=== PATIENT | male | born 1960 | race Caucasian/White ===

== ENCOUNTER 2017-02-10 13:15 | Inpatient (IN) | payer MEDICARE ==
[~2017-02-10] VITALS: Ht 188 cm; Wt 99.4 kg
[2017-02-10] VITALS (9 sets, daily range): BP systolic 85–169; BP diastolic 48–88; PULSE 59–90; RESP 12–20; O2SAT 94–100
[~2017-02-10 13:15] MED LIST: Ondansetron 2 mg/mL 2 mL Inj ONE; Propofol 10,000 mCg/mL 20 mL Inj ONE; fentaNYL-PF 50 mCg/mL 2 mL Inj ONE
[2017-02-10] MEDS ORDERED: 0.9% Sodium Chloride 1,000 ML IV ONE (14:35)
[2017-02-10] MEDS ORDERED: Ondansetron 2 mg/mL 2 mL Inj IVPUSH ONE (14:35)
--- NOTE | 2017-02-10 15:06 | ED.REPORT ---
HPI-Extremity Problem Lower Date of Service Feb 10, 2017 ED Provider: Keith Webb PA-C Edwin is a 56-year-old male with a history of diabetes presents emergency department with a necrotic fifth toe. Patient was seen at urgent care yesterday and advised to be seen in the emergency department, he was unable to make it. Patient was contacted by Dr. Long this morning and asked to come in. Patient reports he injured the toe 8 days ago when he dropped a door on it. Today it is black, painful. Denies fever, shaking chills, abdominal pain, vomiting or other symptoms. He reports he is noncompliant with his insulin. Nursing Notes Stated Complaint: LEFT FOOT INJURY Chief Complaint: Extremity Trauma Nursing Notes Reviewed: Yes Allergies: Coded Allergies: No Known Allergies (Unverified , 02/10/17) No Active Prescriptions or Reported Meds General Time Seen by MD: 14:29 Chief Complaint Toe injury left 5 Past Medical History Past Medical History Diabetes Review of Systems Review of Systems Note: General: Denies fever, chills, malaise. HEENT: Denies congestion, headache, sore throat. Respiratory: Denies dyspnea, cough, shortness of breath, wheezing. Cardiovascular: Denies chest pain, palpitations. Gastrointestinal: Denies vomiting, diarrhea, abdominal pain. Genitourinary: Denies frequency, urgency, dysuria, hematuria. Otherwise as noted in HPI. Physical Exam General: Well appearing, well developed, well nourished, no acute distress. Left foot: Diffuse redness and swelling over distal lateral forefoot. There is an open sore on the dorsal surface of the fifth MTP joint. The fifth digit is black and swollen. Brisk capillary refill in the remaining phalanges. PT and DP pulses are not appreciated, however the foot is warm. Left knee: Normal to inspection, nontender, full range of motion. Head: Atraumatic, normocephalic. Eyes: No scleral icterus or injection. No discharge. Vision grossly intact. ENT: Voice clear, hearing grossly intact. Respiratory: Regular rate and rhythm. Breath sounds present, clear to auscultation and equal bilaterally. No respiratory distress. No increased work of breathing, speaks in complete sentences. Cardiovascular: Regular rate and rhythm, without murmur, gallop or rub. No pedal edema. Gastrointestinal: Abdomen flat and non-tender without guarding or rebound. Bowel sounds normoactive. Skin: Warm and dry. Neurological: Grossly nonfocal. Psychological: Alert and oriented. Speech appropriate, linear and logical. Behavior appropriate. Initial Vital Signs Vital Signs (First) Date Time Temp Pulse Resp B/P Pulse Ox O2 Delivery O2 Flow Rate FiO2 02/10/17 13:21 37.0 59 18 169/63 98 Room Air Elevated blood pressure Interpretation & Diagnostics Lab Results Interpretation Result Diagram: 02/10/17 1541 02/10/17 1541 Re-Eval/Medical Decision Med Decision/Clinical Course 56-year-old male with a history of diabetes presenting for necrosis in his left fifth toe. Seen by Dr. Long prior to my examination, admission is already arranged. Patient complains of no symptoms other than pain in his toe as well as redness and swelling in the forefoot. Physical examination reveals a necrotic right fifth toe surrounding redness, swelling and tenderness. Appears neurovascularly intact. Basic labs are ordered and hospitalist is consulted who accepts admission. Patient is transferred to the floor in stable condition. Consultation : Referral / Consult Name: Nikolay Middleton MD Call Returned at: 15:02 Senior Integration Architect: Accepts admit Discharge & Departure Impression: Primary Impression: Necrosis Disposition: ADMITTED TO HOSPITAL Referrals: NOPCP (PCP) EDSupervising Provider for APC: Ricci Vuong Seth PA-C Feb 10, 2017 15:06
[2017-02-10] MEDS ORDERED: HYDROmorphone 0.5 mg/0.5 mL iSecure Syringe IVPUSH PRN (15:35)
--- NOTE | 2017-02-10 15:43 | PCM.CHPPOD ---
Subjective Date of service Feb 10, 2017 History of Present Illness This 56-year-old male sense to the ED after I called him today to check on the status of his foot having been notified by urgent care in [place] yesterday that he had a gangrenous fifth digit. Patient failed to present to the ED yesterday stating that he did not have care for his disabled . Patient states that he dropped a door on the toe approximately 10 days ago, did sustain an open wound, did not seek medical care and has noted progressive bluish discoloration of the toe and redness and swelling on the dorsum of the foot as well as increased pain since. He states he does not feel well, possibly feverish but denies chills. Patient further states that he is diabetic whether he disengaged from the healthcare system approximately 2 years ago and has not been on any medications or had any evaluations in that interim. Patient is a long-standing smoker. He denies prior foot infections nonhealing wounds or ulcerations of his feet. Reason for Consultation Gangrenous fifth toe left foot and cellulitis of the distal lateral left forefoot. Allergy Allergies: Coded Allergies: No Known Allergies (Unverified , 02/10/17) Past Medical History Surgeries: No Medical History: Surgical History: Additional information Please see admission H&P. Social History Hx Alcohol Use: No Hx Substance Use: No Podiatry Consult Exam Vital Signs Vital Sign - Last Date Time Temp Pulse Resp B/P Pulse Ox O2 Delivery O2 Flow Rate FiO2 02/10/17 13:21 37.0 59 18 169/63 98 Room Air Lab Pending at the time of this note Diagnostics X-ray exam 3 views left foot of 02/09/2017 show mild diffuse osteopenia, subtle cortical defect and lytic lesion lateral proximal phalangeal head with no gross fractures or severe osteolysis noted Exam General: Mild Distress Additional Information: This 56-year-old male presented to the ED with a clean but disheveled bandage on the left foot and in postop shoe. Patient is somewhat wan in appearance and appears what ill but is not in acute distress. Does complain of left foot pain when the foot is touched or bumped. Lower extremity exam Vascular posterior tibial pulses are trace bilaterally, dorsalis pedis pulses are nonpalpable, capillary refill at the digits is 3-4 seconds. The right foot is slightly warm the left foot is moderately warm. There is evidence of digital hair growth and no gross elevational pallor or dependent rubor. Neurologic gross sensory exam shows patient to be partially insensate to the plantar surface of his feet but does have marked pain sensation in the region of the fifth toe left foot. Musculoskeletal ankle subtalar midtarsal ranges of motion appear to be within normal limits although left foot is not put through a full range and assessment due to pain. There are no gross digital deformities. The fifth digit is deeply cyanotic and dusky, slightly cool and there is seropurulent drainage and mild malodor emanating from the toe. Left forefoot is edematous circumferentially. There does not appear to be any fluctuance or focal abscess to palpation. Remainder of the pedal skin is intact. Dermatologic skin shows normal tone and turgor however the fifth toe left foot is gangrenous, weeping malodorous serous drainage and there is intense erythema of the distal lateral forefoot extending to the midfoot. Assessment & Plan Assessment Wet gangrene of the fifth digit left foot, cellulitis left forefoot, probable PAD and uncontrolled diabetes. Problems: Plan Findings reviewed with patient and he will be admitted to the hospitalist service through the ED for parenteral antibiotics and medical management. I have recommended amputation of the gangrenous fifth toe, which will be performed this evening if patient is cleared and medically stable. I reviewed details of the procedure, the fact that closure will not likely be possible immediately and that further surgery may be indicated. Patient is made aware that this is a potentially limb threatening situation but that if tissue loss is limited to the fifth toe he should do well functionally. Patient does express understanding and is willing to proceed. We also discussed at some length the necessity to reengage with the healthcare system and resume treatment of the diabetes, again patient expressed understanding and seem to have good insight as to the advisability of this. I also recommended smoking cessation. Certainly no warrantees were made or implied regarding postoperative results. I appreciate the assistance of the ED staff and hospitalists service. Hoang Long DPM Feb 10, 2017 15:43
[2017-02-10 15:48] LABS: BASOPHILS % (AUTO) 0.3 % (0-3); EOSINOPHILS % (AUTO) 0.5 % (0-5); MONOCYTES % (AUTO) 6.8 % (4-12); Mean Corpuscular Hemoglobin 27.2 pg (27.0-35.0); Mean Corpuscular Volume 79.3 fL (81-100); NEUTROPHILS % (AUTO) 69.2 % (40-74); Platelet Count 296 bil/L (150-400)
[2017-02-10] MEDS ORDERED: Alum-Mag Hydrox-Simeth 30 mL Suspension PO PRN ×2 (15:50→16:20)
[2017-02-10] MEDS ORDERED: Ondansetron 2 mg/mL 2 mL Inj IVPUSH PRN ×2 (15:50→19:00)
[2017-02-10] MEDS ORDERED: Polyethylene Glycol (PEG) 17 Gm Powder PO PRN (16:20)
[2017-02-10] MEDS ORDERED: Glucose 40% Oral Gel 15 Gm Tube PO PRN (16:25)
[2017-02-10] MEDS ORDERED: Albuterol-Ipratropium 3 mL Inhalation Solution NEB PRN (16:30)
[2017-02-10] MEDS: 0.9% Sodium Chloride 1,000 ML IV SCH (16:35)
[2017-02-10] MEDS ORDERED: Dextrose 10% 250 ML IV PRN (16:35)
[2017-02-10] MEDS ORDERED: Vancomycin Inj 2,000 MG in 0.9% Sodium Chloride 500 ML IV ONE (16:40)
[2017-02-10] MEDS ORDERED: Piperacillin-Tazo 3.375 Gm Inj 3.375 GM in Dextrose 5% Minibag Plus 50 ML IV ONE (16:40)
--- NOTE | 2017-02-10 16:50 | PCM.HPMED ---
Subjective Date of Service Feb 10, 2017 Primary Provider: Admitting Physician: Nikolay Middleton MD Primary Care Physician: Giuliana Attending Physician: Nikolay Middleton MD Admit Status: From the Emergency Department, Admit to Red Team Chief Complaint: Left 5th toe injury History of Present Illness: 56-year-old pleasant male history of diabetes type II uncontrolled not currently on medications, diabetic neuropathy, smoker presenting, recent injury of fifth left toe 10 days prior presenting to the ED due to digit turning blue and inc pain. Patient had been seen at [facility] who had instructed patient to go to the ED and also contacted podiatry Dr. Hoang Long informing him that he had a gangrenous fifth digit. Dr. Long contacted patient today after learning that he did not go to the emergency department. Patient initially sustained the injury after door fell on his left foot 10 days ago. He said that he did have bleeding at the site. Both 3 days ago he noticed that he had more redness in the skin surrounding the injury. He says that his toe has been progressively changing color becoming more bluish. Patient says that pain is also increased over the same timeframe. Patient says that he has not seen a doctor in 2 years and has not been taking any medications for his diabetes and that time. He is a daily smoker. Denies any fever or chills. Denies any nausea vomiting diarrhea. Review of Systems: 12 point review of symptoms negative except for that in history of present illness Allergies Coded Allergies: No Known Allergies (Unverified , 02/10/17) Home Medications Patient is not currently taking any home medications Has been on insulin in the past. PMH diabetes type II uncontrolled not currently on medications, diabetic neuropathy, smoker Surgical History Denies any past surgical history. Family History No known cardiac family history Social History Hx Alcohol Use: No Hx Substance Use: No Hx Tobacco Use: Yes Smoking Status: Current Every Day Smoker Exam Vital Signs Vital Sign - Last Date Time Temp Pulse Resp B/P Pulse Ox O2 Delivery O2 Flow Rate FiO2 02/10/17 16:16 36.9 90 20 162/88 96 Room Air Exam Gen: NAD, AOx4, HEENT: NCAT, PERRLA, EOMI, MMM, sclera anicteric. Neck: Soft, supple, no thyromegaly/JVD/LAD. Resp: CTAB, no R/R/W. CV: S1 S2, RRR, No M/R/G Abd: Soft, (+) BS, NT/ND, no guarding/rebound/organomegaly. Ext: +weak bilateral PP, Left 5th digit- necrotic appearing, bluish in color. surrounding erythema dorsum of left foot. Skin: warm/dry/intact Neuro/Psych: Cooperative, appr mood/affect. CN II-XII grossly intact. No focal deficits. Left 5th digit- dec sensation, can feel pressure. Lab and Diagnostics Result Diagram: 02/10/17 1541 02/10/17 1541 Microbiology Laboratory Tests Test 02/10/17 15:41 White Blood Count 13.0th/mm3 (3.8-10.1) Red Blood Count 5.41mil/mm3 (4.40-5.80) Hemoglobin 14.7g/dL (13.8-17.2) Hematocrit 42.9% (41.0-50.0) Mean Corpuscular Volume 79.3fL (81-100) Mean Corpuscular Hemoglobin 27.2pg (27.0-35.0) Mean Corpuscular Hemoglobin Concent 34.3% (32.0-37.0) Red Cell Distribution Width 14.1% (12.3-15.4) Platelet Count 296bil/L (150-400) Neutrophils (%) (Auto) 69.2% (40-74) Lymphocytes (%) (Auto) 23.0% (14-46) Monocytes (%) (Auto) 6.8% (4-12) Eosinophils (%) (Auto) 0.5% (0-5) Basophils (%) (Auto) 0.3% (0-3) Sodium Level 137mEq/L (134-144) Potassium Level 3.7mEq/L (3.5-5.2) Chloride Level 100mEq/L (97-108) Carbon Dioxide Level 22mmol/L (18-29) Blood Urea Nitrogen 22mg/dL (6-24) Creatinine 0.80mg/dL (0.76-1.27) Estimat Glomerular Filtration Rate 107mL/min (>59) Glucose Level 212mg/dL (60-99) Lactic Acid Level 1.0mmol/L (0.4-2.0) Calcium Level 9.3mg/dL (8.5-10.1) Total Bilirubin 0.4mg/dL (0.0-1.2) Aspartate Amino Transf (AST/SGOT) 10U/L (0-50) Alanine Aminotransferase (ALT/SGPT) 9U/L (0-44) Alkaline Phosphatase 111U/L (25-150) Total Protein 7.2g/dL (6.4-8.4) Albumin 3.6g/dL (3.4-5.0) Lipase 14U/L (13-60) X-Rays, CTs and MRIs X-ray exam 3 views left foot of 02/09/2017 show mild diffuse osteopenia, subtle cortical defect and lytic lesion lateral proximal phalangeal head with no gross fractures or severe osteolysis noted Assessment & Plan 56-year-old pleasant male history of diabetes type II uncontrolled not currently on medications, diabetic neuropathy, smoker presenting, recent injury of fifth left toe 10 days prior sent to the ED by Podiatry for gangrenous fifth toe left foot and cellulitis of the distal lateral left forefoot. Gangrenous fifth toe left foot and cellulitis of the distal lateral left forefoot- poa, active. WBC- 13, Does not meet criteria for Sepsis. -Likely due to uncontrolled diabetes and delay in seeking medical assistance. Pt have have peripheral vascular disease and weak peripheral pulses. -X-ray exam 3 views left foot of 02/09/2017 show mild diffuse osteopenia, subtle cortical defect and lytic lesion lateral proximal phalangeal head with no gross fractures or severe osteolysis noted -Podiatry Dr. Og Long, has seen patient in ED and will likely take to OR tonight for amputation of the gangrenous fifth toe. -Will start IV abx- Vancomycin and Zosyn. Blood Cultures sent. -c/w IVF, Diluadid prn for pain. - Keep NPO for pending surgery. - Pre-OP EKG, CXR. - Pt is low cardiac risk for surgery. Diabetes type II uncontrolled- chronic, active- Pt not currently taking meds for > 2 yrs. Pt was on insulin in past. - Check HBA1C. - Start SSI, will calculate 24 hr and determine insulin needs. Smoking Abuse- chronic, active- Cessation advised. Nicotine patch. CXR- ordered. Code- Full DVT ppx- SCD. Consider heparin post-op 24 hrs. Acetaminophen for mild pain when necessary. Bowel regimen Senna and MiraLAX scheduled and PRN. Zofran when necessary for nausea and vomiting. Status- Patient is admitted under inpatient status expected length of stay greater than 2 midnights due to severity of presenting symptoms, risk of adverse events, and complexity of treatment plan. Pain Evaluation: Adequate Pain Control GI Prophylaxis: Not indicated VTE Mechanical Devices: Intermittant Pneumatic CD Resuscitation Status: CPR: Attempt Resuscitation Time spent >45 minutes Nikolay Middleton MD Feb 10, 2017 16:50
--- NOTE | 2017-02-10 17:06 | DRSVH ---
PROCEDURE: X-RAY CHEST ONE VIEW, PORTABLE ([id number]) INDICATIONS: Smoker, preop TECHNIQUE: One view of the chest was acquired. COMPARISON: None. FINDINGS: Surgical changes and devices: None. Lungs and pleura: No pleural effusions or pneumothorax. Lungs are clear. Mediastinum: Mediastinal contours appear normal. Heart size is normal. Bones and chest wall: No suspicious bony lesions. Overlying soft tissues appear unremarkable. IMPRESSION: No acute pulmonary process. Dictated by: Aparna Peng M.D. on 02/10/2017 at 17:04 Approved by: Aparna Peng M.D. on 02/10/2017 at 17:04
[2017-02-10] MEDS: Insulin LISPRO 300 Unit/3 mL Inj SUBQ SCH ×2 (17:30→21:41)
[2017-02-10] MEDS: HYDROmorphone 1 mg/mL Inj IVPUSH PRN (18:20)
--- NOTE | 2017-02-10 18:35 | PCM.PHAPRO ---
Progress Date of Service: Feb 10, 2017 Left 5th toe injury Vancomycin Management per Pharmacy: Indication: Osteomyelitis of toe Goal Vanco Trough: 15-20 mg/dL Age: 56 yo male, significant for history of diabetes type II - uncontrolled Labs: WBC: 13 SrCr: 0.8 mg/dL Lactic Acid: 1.0 Procalcitonin: 0.04 Vitals: All stable, no fevers Nephrotoxic Risk Factors: Uncontrolled diabetes, Zosyn IV Micro: Pending Recommendation: Load: Vancomycin 2000 mg IV x 1 given in ED (~20 mg/kg) Maintenance: Vancomycin 1500 mg IV Q12h (~15 mg/kg) Vanco Trough: Draw prior to 4th maintenance dose on 02/12 @ 1930 Pharmacy to continue to monitor and adjust dose as needed. Thank You, Janna Chaudhary, Pharm D. Janna Chaudhary Feb 10, 2017 18:35
[2017-02-10] MEDS ORDERED: Lactated Ringer's 500 ML IV PRN (18:57)
[2017-02-10] MEDS ORDERED: Lactated Ringer's 1,000 ML IV SCH (18:57)
--- NOTE | 2017-02-10 18:58 | PCM.HPANE ---
Patient Data Surgeon Admitting Provider:Nikolay Middleton MD Attending Provider:Nikolay Middleton MD Primary Care Physician:Giuliana Other Provider: Reason for Visit 5TH Toe Necrosis Ht/WT & BMI Height (Feet): 6 Height (Inches): 2.00 Weight (Kilograms): 98.700 Body Mass Index 27.93 Allergies Coded Allergies: No Known Allergies (Unverified , 02/10/17) Past Anesthesia History Anesthesia History: Denies:: Abnormal Airway, Anesthesia Reactions, Difficult Intubation, Fam Anesthesia Reaction, Fam Malignant Hypertherm, Malignant Hyperthermia Diabetes History Hx Diabetes?: Yes Medications No Active Prescriptions or Reported Meds History History of ENT Problems?: No HEENT History: Denies:: Abnormal Airway Cataracts Difficult Intubation Dysphagia Glaucoma Hearing Problem Sinus Problem TMJ Denture Type: None Partial- Upper Teeth Condition: Within Normal Limits Hx of Heart Problems?: No Cardiovascular History: Denies:: Cardiac Surgery Chest Pain Congestive Heart Failure Edema Heart Murmur Hypertension Irregular Heartbeat Pacemaker Thrombophlebitis Hx of Respiratory Problem?: No Respiratory History: Denies:: Asthma COPD Chest Surgery Dyspnea Emphysema Hemoptysis Pneumonia Tuberculosis Hx Neurologic Problems?: No Hx of GI Problems?: No Hx of Problems?: No Male Hx: Denies:: Prostate Problems Scrotal Mass Testicular Surgery Hx Musculoskeletal Problems?: No Hx of Psycho/Social Problems?: No Hx Surgeries?: No Hx Any Other Health Problems?: Yes Other History: Denies:: Cancer Hospitalization Thyroid Disease History Blood Transfusions: Positive for:: Accept Blood Products? Denies:: Blood Transfusions Hx Diabetes: Yes Hx Alcohol Use: NoHx Substance Use: No Smoking Status: Current Every Day Smoker Have You Smoked inLast 12 mo: Yes (1PPP) Stop/Bang Treated for Sleep Apnea?: No Do You Have a CPAP Machine?: No S-Snoring: Do You Snore Loudly: Yes T-Tired: feel tired, fatigued: No O-Obsered: Observed not breath: No P-Blood Pressure: treated: No B- Body Mass Index > 35 kg/m2: No A- Age over 50: Yes N- Neck Large Circumference: No G- Gender Male: Yes SHEYLA Total Score: 2 Risk Assessment Category Category 1A: Patient has history of documented sleep apnea, and HAS NOT received any narcotic, sedative or anesthesia administration during this stay. Category 1B: Patient has history of documented sleep apnea, and HAS received any narcotic , sedative or anesthesia administration during this stay Category 2: Patient has SUSPECTED Obstructive Sleep Apnea, and HAS received any narcotic , sedative or anesthesia administration during this stay. Category 3: Patient has SUSPECTED Obstructive Sleep Apnea and HAS NOT received narcotic, sedative or anesthesia administration during this stay. Category 4: Outpatient in Procedural Areas with known sleep apnea or who screen positive for High Risk via the STOP/BANG questionnaire. Exam Exam Vital Signs Vital Signs Date Time Temp Pulse Resp B/P Pulse Ox O2 Delivery O2 Flow Rate FiO2 02/10/17 16:16 36.9 90 20 162/88 96 Room Air 02/10/17 15:55 36.8 88 20 155/86 98 Room Air 02/10/17 13:21 37.0 59 18 169/63 98 Room Air General Appearance: Alert, Oriented X3, Cooperative, No Acute Distress HEENT/AIRWAY: MP 2 Lungs: Clear to Auscultation Heart: Exam Unremarkable Meds/Labs/Diagnostics Admission Meds Current Medications Sodium Chloride 1,000 ml @ 0 mls/hr Q0M ONCE IV Last administered on 02/10/17 15:38; Start 02/10/17 at 14:35; Stop 02/10/17 at 16:31; Status DC Piperacillin Sod/ Tazobactam Sod/ Dextrose/Water (Zosyn 3.375 Gm Inj/D5W Minibag Plus) 50 ml @ 100 mls/hr ONCE ONCE IV Last administered on 02/10/17 17:30; Start 02/10/17 at 16:40; Stop 02/10/17 at 17:09; Status DC Labs Test 02/10/17 15:41 White Blood Count 13.0th/mm3 (3.8-10.1) Red Blood Count 5.41mil/mm3 (4.40-5.80) Hemoglobin 14.7g/dL (13.8-17.2) Hematocrit 42.9% (41.0-50.0) Mean Corpuscular Volume 79.3fL (81-100) Mean Corpuscular Hemoglobin 27.2pg (27.0-35.0) Mean Corpuscular Hemoglobin Concent 34.3% (32.0-37.0) Red Cell Distribution Width 14.1% (12.3-15.4) Platelet Count 296bil/L (150-400) Neutrophils (%) (Auto) 69.2% (40-74) Lymphocytes (%) (Auto) 23.0% (14-46) Monocytes (%) (Auto) 6.8% (4-12) Eosinophils (%) (Auto) 0.5% (0-5) Basophils (%) (Auto) 0.3% (0-3) Erythrocyte Sedimentation Rate 17mm/hr (0-30) Sodium Level 137mEq/L (134-144) Potassium Level 3.7mEq/L (3.5-5.2) Chloride Level 100mEq/L (97-108) Carbon Dioxide Level 22mmol/L (18-29) Blood Urea Nitrogen 22mg/dL (6-24) Creatinine 0.80mg/dL (0.76-1.27) Estimat Glomerular Filtration Rate 107mL/min (>59) Glucose Level 212mg/dL (60-99) Lactic Acid Level 1.0mmol/L (0.4-2.0) Calcium Level 9.3mg/dL (8.5-10.1) Total Bilirubin 0.4mg/dL (0.0-1.2) Aspartate Amino Transf (AST/SGOT) 10U/L (0-50) Alanine Aminotransferase (ALT/SGPT) 9U/L (0-44) Alkaline Phosphatase 111U/L (25-150) Total Protein 7.2g/dL (6.4-8.4) Albumin 3.6g/dL (3.4-5.0) Lipase 14U/L (13-60) Plan Impression Patient chart reviewed, patient interviewed and anesthestic plan with risks, benefits, and alternatives discussed, and informed consent obtained. ASA Physical Status: ASA2 Mod Systemic Disease Anesthetic Plan: GA Bene/Risks/Altern/Consents: Yes HP Complete Prior to Induction: Yes Wolfgang Medina MD Feb 10, 2017 17:37
[2017-02-10] MEDS ORDERED: HYDROmorphone 1 mg/mL Inj IVPUSH PRN (19:00)
[2017-02-10] MEDS ORDERED: fentaNYL-PF 50 mCg/mL 2 mL Inj IVPUSH PRN (19:00)
[2017-02-10] MEDS ORDERED: Phenylephrine 10,000 mCg/mL Inj IVPUSH PRN (19:00)
[2017-02-10] MEDS ORDERED: MetoCLOpramide 5 mg/mL 2 mL Inj IVPUSH PRN (19:00)
[2017-02-10] MEDS ORDERED: EPHEDrine Sulfate 50 mg/mL Inj IVPUSH PRN (19:00)
[2017-02-10] MEDS ORDERED: Dexamethasone 4 mg/mL Inj IVPUSH PRN (19:00)
[2017-02-10] MEDS ORDERED: Bupivacaine-MPF 0.5% 30 mL Inj INFILTRATE ONE (19:09)
[2017-02-10] MEDS ORDERED: Gentamicin 40 mg/mL 2 mL Inj IRRIGATION ONE (19:33)
--- NOTE | 2017-02-10 20:07 | PCM.PODPO ---
Podiatry Operative Report Date of Service: Feb 10, 2017 Date of Service Feb 10, 2017 Pre Operative Diagnosis Gangrene fifth digit left foot, cellulitis left foot Post Operative Diagnosis Same, additional full-thickness perforating abscess sub-first metatarsal head left foot Procedure Amputation fifth digit left foot, debridement of ulceration sub-first met head left foot Surgeon Surgeon: Hoang Long DPM Indication for Procedure Same Findings Minimal intraoperative bleeding, same as above Details of Procedure Patient was brought to the operating room and placed on the table in the supine position. Surgical timeout was observed and upon initiation of general anesthesia a well-padded pneumatic ankle tourniquet was applied but not utilized intraoperatively. The foot was prepped and draped in the usual aseptic manner. Attention was directed to the fifth digit which was entirely necrotic and medial and lateral converging semi-elliptical incisions were made at the base of the toe at the interface between chronic and viable-appearing tissue. This incision was sharply deepened and the long flexor and extensor tendons were transected. The collateral ligaments were divided, the fifth digit was disarticulated at the metatarsophalangeal joint and removed from the surgical field. Next the head of the fifth metatarsal was remodeled so as to remove avascular hyalin cartilage and allow for reducing its size to improve closure and reduce bony prominences on the surrounding soft tissue. This was performed with a bone rongeur forcep. The extensor tendon was retracted and transected. Senia-incisional necrotic tissue was carefully excised and all remaining tissue appeared viable although there was minimal intraoperative bleeding. Attention was then directed to the thick callus sub-first metatarsal head which was tangentially debrided with a 15 blade. The lesion measured 2 x 2 cm x 3-4 mm deep and exhibited a 4 x 4 millimeter central ostium which appear to probe nearly to the sesamoid complex. Devitalized fibrinous tissue was debrided. Both sites were copiously irrigated with antibiotic solution. The amputation site was partially closed with 3-0 Prolene. The wound were packed with an antibiotic solution soaked 2 x 2 sponge and noncompressive fluffed gauze bandage applied. The patient was extubated uneventfully and left the operating suite in apparently satisfactory condition. The digit was sent to pathology for gross and microscopic exam, soft tissue was sent for aerobic culture and sensitivity. There were no complications. Grafts, Implants: None Complications There were no periprocedural complications identified. Condition Stable Anesthetic Administered: GA Drains: None Catheters: None Output, Estimated Blood Loss: 5 Blood Admin during surgery: No Surgical Cast or Splint: Other Surgical Specimen Removed: Yes Specimen sent to Pathology: Yes Post Operative Plan Return to floor for continued parenteral antibiotics and vascular evaluation. Hoang Long DPM Feb 10, 2017 20:07
--- NOTE | 2017-02-10 20:17 | DRSVH ---
PROCEDURE: X-RAY LEFT FOOT COMPLETE, MINIMUM THREE VIEWS ([id number]) INDICATIONS: immediate post-op TECHNIQUE: 3 views of the foot were acquired. COMPARISON: YANET Mckenna, XR FOOT 3VW LT, 02/09/2017, 13:50. FINDINGS: Bones: There has been interval resection of the fifth digit distal to the metatarsal. Expected postop erative changes are present. Soft tissues: No tibiotalar joint effusion. Achilles tendon appears normal. IMPRESSION: Postoperative resection of fifth digit distal to the metatarsal. Dictated by: Aparna Peng M.D. on 02/10/2017 at 20:14 Approved by: Aparna Peng M.D. on 02/10/2017 at 20:15
--- NOTE | 2017-02-10 20:51 | PCM.ANEP1 ---
Post Anesthesia PACU Phase 1 Assessment Vital Signs Vital Signs Date Time Temp Pulse Resp B/P Pulse Ox O2 Delivery O2 Flow Rate FiO2 02/10/17 20:38 37.1 75 15 150/70 94 Room Air 02/10/17 20:20 36.7 67 12 136/68 95 Room Air 02/10/17 20:16 68 13 134/64 95 Room Air 02/10/17 20:08 67 15 122/60 100 Simple Mask 6 02/10/17 20:02 67 13 96/59 100 Simple Mask 6 02/10/17 19:49 36.1 63 12 85/48 95 LMA 02/10/17 16:16 36.9 90 20 162/88 96 Room Air 02/10/17 15:55 36.8 88 20 155/86 98 Room Air 02/10/17 13:21 37.0 59 18 169/63 98 Room Air Anesthetic Administered: GA Level of Alertness: Sleeping, hard to arouse Pain: No Pain Scale Score: 7 Nausea or Vomiting: No CV Function & Hydration Stable: Yes Airway Device: Oxygen Delivery: Room Air Lungs: Clear to Auscultation PACU Phase 2 Assessment Complications: No Patient Instructions Provided: N/A Wolfgang Medina MD Feb 10, 2017 20:51
[2017-02-10] MEDS: Piperacillin-Tazo 3.375 Gm Inj 3.375 GM in Dextrose 5% Minibag Plus 50 ML IV SCH (21:44)
[2017-02-10] MEDS: HYDROcodone-APAP 5-325 mg Tablet PO PRN (22:14)
[2017-02-11] MEDS: HYDROmorphone 1 mg/mL Inj IVPUSH PRN ×3 (00:06→10:54)
[2017-02-11 00:51] VITALS: BP 146/80; PULSE 71; RESP 17; O2SAT 98
[2017-02-11] MEDS: 0.9% Sodium Chloride 1,000 ML IV SCH ×3 (02:35→22:35)
[2017-02-11] MEDS: Piperacillin-Tazo 3.375 Gm Inj 3.375 GM in Dextrose 5% Minibag Plus 50 ML IV SCH ×3 (05:08→22:49)
[2017-02-11 05:30] VITALS: BP 156/75; PULSE 63; RESP 19; O2SAT 95
[2017-02-11 06:11] LABS: BASOPHILS % (AUTO) 0.4 % (0-3); EOSINOPHILS % (AUTO) 1.5 % (0-5); MONOCYTES % (AUTO) 8.2 % (4-12); Mean Corpuscular Hemoglobin 26.8 pg (27.0-35.0); Mean Corpuscular Volume 81.2 fL (81-100); Platelet Count 269 bil/L (150-400)
[2017-02-11] MEDS: Vancomycin Dose per Pharmacist XX SCH ×2 (07:55→08:04)
[2017-02-11] MEDS: Insulin LISPRO 300 Unit/3 mL Inj SUBQ SCH ×4 (08:02→23:00)
[2017-02-11] MEDS: HYDROcodone-APAP 5-325 mg Tablet PO PRN ×3 (08:10→17:42)
[2017-02-11] MEDS: Vancomycin Inj 1,500 MG in 0.9% Sodium Chloride 500 ML IV SCH ×2 (09:40→20:55)
--- NOTE | 2017-02-11 10:13 | PCM.PNPOD ---
Subjective Date of Service: Feb 11, 2017 Date of Service: Feb 11, 2017 Visit Information: Reason for Visit 5TH Toe Necrosis Surgery/Surgery Date Post-Op Day # Date of Admission: Feb 10, 2017 at 15:22 Hospital Day # Subjective: This 56-year-old male is seen postop day one status post amputation fifth digit left foot and debridement and drainage of abscess sub-first metatarsal head left foot. Patient does complain of moderate postoperative pain not fully controlled with Vicodin. He denies constitutional signs of infection such as fever chills, still feels quite tired and appetite is not entirely normal. Objective Vital Sign - Last Date Time Temp Pulse Resp B/P Pulse Ox O2 Delivery O2 Flow Rate FiO2 02/11/17 05:30 36.8 63 19 156/75 95 Room Air 02/10/17 20:08 6 Intake and Output 02/10/17 02/10/17 02/11/17 Cumulative From/Thru 15:00 23:00 07:00 02/10/17 13:21 - 02/11/17 06:50 Intake Total 1899 ml 1605 ml 3504 ml Output Total 0 ml 1600 ml 1600 ml Balance 1899 ml 5 ml 1904 ml Intake Oral 0 ml 756 ml 756 ml IV Total 1899 ml 849 ml 2748 ml Output Urine Total 0 ml 1600 ml 1600 ml # Bowel Movements 0 0 Result Diagram: 02/11/17 0508 02/11/17 0508 Lab Test 02/10/17 15:41 02/11/17 05:08 Erythrocyte Sedimentation Rate 17mm/hr (0-30) Lactic Acid Level 1.0mmol/L (0.4-2.0) Total Bilirubin 0.4mg/dL (0.0-1.2) Aspartate Amino Transf (AST/SGOT) 10U/L (0-50) Alanine Aminotransferase (ALT/SGPT) 9U/L (0-44) Alkaline Phosphatase 111U/L (25-150) C-Reactive Protein 6.3mg/dL (0.0-0.5) Total Protein 7.2g/dL (6.4-8.4) Albumin 3.6g/dL (3.4-5.0) Lipase 14U/L (13-60) Procalcitonin 0.04ng/mL (0.00-0.08) White Blood Count 11.7th/mm3 (3.8-10.1) Red Blood Count 4.78mil/mm3 (4.40-5.80) Hemoglobin 12.8g/dL (13.8-17.2) Hematocrit 38.8% (41.0-50.0) Mean Corpuscular Volume 81.2fL (81-100) Mean Corpuscular Hemoglobin 26.8pg (27.0-35.0) Mean Corpuscular Hemoglobin Concent 33.0% (32.0-37.0) Red Cell Distribution Width 14.0% (12.3-15.4) Platelet Count 269bil/L (150-400) Neutrophils (%) (Auto) 68.0% (40-74) Lymphocytes (%) (Auto) 21.6% (14-46) Monocytes (%) (Auto) 8.2% (4-12) Eosinophils (%) (Auto) 1.5% (0-5) Basophils (%) (Auto) 0.4% (0-3) Sodium Level 139mEq/L (134-144) Potassium Level 4.1mEq/L (3.5-5.2) Chloride Level 102mEq/L (97-108) Carbon Dioxide Level 23mmol/L (18-29) Blood Urea Nitrogen 16mg/dL (6-24) Creatinine 0.81mg/dL (0.76-1.27) Estimat Glomerular Filtration Rate 106mL/min (>59) Glucose Level 189mg/dL (60-99) Calcium Level 8.2mg/dL (8.5-10.1) Exam Physical Exam Patient is seen sitting on the side of his bed with feet in dependency. General: Mild Distress Lungs: Clear to Auscultation Additional Information: Lower extremity reexam shows modest serosanguineous drainage on the bandage. The dorsolateral forefoot continues to be erythematous but edema is improving. Sutured area of the wound coapted and appears to be healing but it is too early to tell with certainty. Upon removal of the packing and does appear to be early granulation tissue without gross recurrent soft tissue necrosis. Pulses continue to be minimally palpable, capillary refill 3-5 seconds at the digits, no gross elevational pallor. Assessment & Plan Impression Modest improvement overnight, I suspect significant peripheral arterial disease and anticipation for cardiology consult, regarding revascularization but will await results of arterial duplex which has not as yet been performed.. Intraoperative cultures are pending. Problems: Plan The wounds are dressed with saline and loose mesh gauze wet-to-dry type dressing and noncompressive bulky gauze bandage. Continue vancomycin and Zosyn ending intraoperative culture results. I have requested nursing ensure radiology is notified and aware of the ordered arterial duplex. If patient does not exhibit fairly prompt response to current antibiotic regimen, I would recommend infectious disease consult. Patient may bear weight on the left heel. Podiatry to perform daily dressing changes and wound assessment. I again stressed the importance of smoking cessation. Hoang Long DPM Feb 11, 2017 10:13
[2017-02-11 13:15] LABS: APPEARANCE,URINE CLEAR (CLEAR,HAZY); COLOR,URINE YELLOW (YELLOW)
[2017-02-11 13:16] LABS: OCCULT BLOOD,URINE NEGATIVE (NEGATIVE); UROBILINOGEN,URINE NORMAL (NORMAL)
[2017-02-11 13:30] VITALS: BP 153/72; PULSE 68; RESP 18; O2SAT 96
--- NOTE | 2017-02-11 14:30 | PCM.PNMED ---
Subjective Date of Service Feb 11, 2017 Subjective POD#1. Pt reports pain well controlled. BS have been elevated. Is receiving Sliding Scale Insulin. Exam Vital Signs Vital Sign - Last Date Time Temp Pulse Resp B/P Pulse Ox O2 Delivery O2 Flow Rate FiO2 02/11/17 13:30 36.9 68 18 153/72 96 Room Air 02/10/17 20:08 6 Intake and Output 02/10/17 02/10/17 02/11/17 Cumulative From/Thru 15:00 23:00 07:00 02/10/17 13:21 - 02/11/17 06:50 Intake Total 1899 ml 1605 ml 3504 ml Output Total 0 ml 1600 ml 1600 ml Balance 1899 ml 5 ml 1904 ml Intake Oral 0 ml 756 ml 756 ml IV Total 1899 ml 849 ml 2748 ml Output Urine Total 0 ml 1600 ml 1600 ml # Bowel Movements 0 0 Exam Gen: NAD, AOx4, HEENT: NCAT, PERRLA, EOMI, MMM, sclera anicteric. Neck: Soft, supple, no thyromegaly/JVD/LAD. Resp: CTAB, no R/R/W. CV: S1 S2, RRR, No M/R/G Abd: Soft, (+) BS, NT/ND, no guarding/rebound/organomegaly. Ext: Pulses- weak, palpable. Left foot bandaged- some serosanguinous drainage appreciated. Can move toes. Sensation intact. Skin: warm/dry/intact Neuro/Psych: Cooperative, appr mood/affect. CN II-XII grossly intact. No focal deficits. IVs and Medications Medications Reviewed: Medications were reviewed in detail Lab and Diagnostics Result Diagram: 02/11/17 0508 02/11/17 0508 Microbiology Laboratory Tests Test 02/10/17 15:41 White Blood Count 13.0th/mm3 (3.8-10.1) Red Blood Count 5.41mil/mm3 (4.40-5.80) Hemoglobin 14.7g/dL (13.8-17.2) Hematocrit 42.9% (41.0-50.0) Mean Corpuscular Volume 79.3fL (81-100) Mean Corpuscular Hemoglobin 27.2pg (27.0-35.0) Mean Corpuscular Hemoglobin Concent 34.3% (32.0-37.0) Red Cell Distribution Width 14.1% (12.3-15.4) Platelet Count 296bil/L (150-400) Neutrophils (%) (Auto) 69.2% (40-74) Lymphocytes (%) (Auto) 23.0% (14-46) Monocytes (%) (Auto) 6.8% (4-12) Eosinophils (%) (Auto) 0.5% (0-5) Basophils (%) (Auto) 0.3% (0-3) Sodium Level 137mEq/L (134-144) Potassium Level 3.7mEq/L (3.5-5.2) Chloride Level 100mEq/L (97-108) Carbon Dioxide Level 22mmol/L (18-29) Blood Urea Nitrogen 22mg/dL (6-24) Creatinine 0.80mg/dL (0.76-1.27) Estimat Glomerular Filtration Rate 107mL/min (>59) Glucose Level 212mg/dL (60-99) Lactic Acid Level 1.0mmol/L (0.4-2.0) Calcium Level 9.3mg/dL (8.5-10.1) Total Bilirubin 0.4mg/dL (0.0-1.2) Aspartate Amino Transf (AST/SGOT) 10U/L (0-50) Alanine Aminotransferase (ALT/SGPT) 9U/L (0-44) Alkaline Phosphatase 111U/L (25-150) Total Protein 7.2g/dL (6.4-8.4) Albumin 3.6g/dL (3.4-5.0) Lipase 14U/L (13-60) X-Rays, CTs and MRIs X-ray exam 3 views left foot of 02/09/2017 show mild diffuse osteopenia, subtle cortical defect and lytic lesion lateral proximal phalangeal head with no gross fractures or severe osteolysis noted Assessment & Plan 56-year-old pleasant male history of diabetes type II uncontrolled not currently on medications, diabetic neuropathy, smoker presenting, recent injury of fifth left toe 10 days prior sent to the ED by Podiatry for gangrenous fifth toe left foot and cellulitis of the distal lateral left forefoot s/p amputation of the gangrenous fifth toe on 02/[address] Long. Gangrenous fifth toe left foot and cellulitis of the distal lateral left forefoot- poa, active. s/p amputation of the gangrenous fifth toe on 02/[address] Long. WBC- 13, Does not meet criteria for Sepsis. Likely due to uncontrolled diabetes and delay in seeking medical assistance. Pt have have peripheral vascular disease and weak peripheral pulses. -X-ray exam 3 views left foot of 02/09/2017 show mild diffuse osteopenia, subtle cortical defect and lytic lesion lateral proximal phalangeal head with no gross fractures or severe osteolysis noted -Started IV abx on 02/10- Vancomycin and Zosyn. Blood Cultures- ngtd. -c/w IVF, Diluadid prn, Oxycodone prn. - Podiatry following, Dr. Hoang Long. Get Vascular US, may need Cardio consult. Patient may bear weight on the left heel. Podiatry to perform daily dressing changes and wound assessment Diabetes type II uncontrolled- chronic, active- Pt not currently taking meds for > 2 yrs. Pt was on insulin in past. - HBA1C- pending. - Added 10units Lantus, can increased as needed. - Start SSI, will calculate 24 hr and determine insulin needs. Smoking Abuse- chronic, active- Cessation advised. Nicotine patch. CXR-No acute pulmonary process. Code- Full DVT ppx- SCD. Consider heparin post-op 24 hrs. Acetaminophen for mild pain when necessary. Bowel regimen Senna and MiraLAX scheduled and PRN. Zofran when necessary for nausea and vomiting. Status- Patient is admitted under inpatient status expected length of stay greater than 2 midnights due to severity of presenting symptoms, risk of adverse events, and complexity of treatment plan. Pain Evaluation: Adequate Pain Control GI Prophylaxis: Not indicated VTE Mechanical Devices: Intermittant Pneumatic CD Resuscitation Status: CPR: Attempt Resuscitation Nikolay Middleton MD Feb 11, 2017 14:30
--- NOTE | 2017-02-11 16:06 | DRSVH ---
PROCEDURE: US DUPLEX DOPPLER UNILATERAL LEG ARTERIES, LEFT INDICATIONS: gangrene,absent pulses, minimal intraop bleeding TECHNIQUE: Color and pulse Doppler interrogation was performed of the left lower extremity arterial system, with image documentation. COMPARISON: None. FINDINGS: Vascular Ultrasound Procedure Report Findings(Artery of Lower Extremity)(Left) Common Femoral Artery(Distal) Velocity: 89 cm/s with triphasic flow Profunda Femoris Artery(Proximal) Velocity: 58 cm/s with triphasic flow Superficial Femoral Artery(Proximal) Velocity: 87 cm/s with triphasic flow Superficial Femoral Artery(Mid-longitudinal) Velocity: 92 cm/s with triphasic flow Superficial Femoral Artery(Distal) Velocity: 74 cm/s with triphasic flow Popliteal Artery(Mid-longitudinal) 6 Velocity: 59 cm/s with low resistance waveforms Posterior Tibial Artery(Distal) Velocity: 71 cm/s with low resistance waveforms.. Dorsalis Pedis Artery(Distal) Velocity: 49 cm/s with low resistance waveforms. Greyscale findings: There is atherosclerotic plaque throughout the left lower extremity. IMPRESSION: 1. Decreased velocities with low resistance waveforms in the distal left lower extremity beginning w ithin the popliteal artery suggestive of a hemodynamically significant stenosis between the distal chaney perficial femoral artery and popliteal artery. Dictated by: Mega Patel M.D. on 02/11/2017 at 16:01 Approved by: Mega Patel M.D. on 02/11/2017 at 16:05
[2017-02-11 19:42] VITALS: BP 144/79; PULSE 77; RESP 18; O2SAT 98
[2017-02-11] MEDS ORDERED: Insulin GLARgine 100 Unit/mL Syringe SUBQ SCH (21:00)
[2017-02-12] MEDS: Heparin 5,000 Unit/mL Inj SUBQ SCH ×3 (01:34→16:20)
[2017-02-12] MEDS: Piperacillin-Tazo 3.375 Gm Inj 3.375 GM in Dextrose 5% Minibag Plus 50 ML IV SCH ×3 (05:36→23:07)
[2017-02-12 06:16] VITALS: BP 147/75; PULSE 69; RESP 16; O2SAT 100
[2017-02-12] MEDS ORDERED: Insulin GLARgine 100 Unit/mL Syringe SUBQ SCH (08:30)
[2017-02-12] MEDS: Vancomycin Dose per Pharmacist XX SCH (08:30)
[2017-02-12] MEDS: 0.9% Sodium Chloride 1,000 ML IV SCH ×3 (08:35→18:35)
[2017-02-12] MEDS: Insulin GLARgine 100 Unit/mL Syringe SUBQ SCH ×2 (08:41→22:35)
[2017-02-12] MEDS: Vancomycin Inj 1,500 MG in 0.9% Sodium Chloride 500 ML IV SCH ×2 (08:43→21:32)
[2017-02-12] MEDS: Insulin LISPRO 300 Unit/3 mL Inj SUBQ SCH ×4 (09:14→22:36)
[2017-02-12] MEDS: HYDROmorphone 1 mg/mL Inj IVPUSH PRN (09:42)
[2017-02-12 09:56] LABS: BASOPHILS % (AUTO) 0.5 % (0-3); EOSINOPHILS % (AUTO) 1.7 % (0-5); MONOCYTES % (AUTO) 8.3 % (4-12); Mean Corpuscular Hemoglobin 27.2 pg (27.0-35.0); Mean Corpuscular Volume 80.6 fL (81-100); NEUTROPHILS % (AUTO) 65.6 % (40-74); Platelet Count 303 bil/L (150-400)
[2017-02-12 11:13] VITALS: PULSE 77; RESP 16; O2SAT 98
--- NOTE | 2017-02-12 11:18 | PCM.PNPOD ---
Subjective Date of Service: Feb 12, 2017 Date of Service: Feb 12, 2017 Visit Information: Reason for Visit 5TH Toe Necrosis Surgery/Surgery Date Post-Op Day # Date of Admission: Feb 10, 2017 at 15:22 Hospital Day # Subjective: 56-year-old male is seen postop day 2 status post amputation fifth digit and debridement of ulcer/abscess sub-first met head left foot. Patient states he slept better last night with the aid of Restoril. He notes mild persistent pain which is better controlled on oxycodone. Upon further discussion today patient admits to having had 6 block left calf pain in the past 1-2 years. Patient had arterial duplex yesterday which shows high-grade stenosis of the SFA and popliteal with diffuse atherosclerotic plaquing of the left lower extremity. Objective Vital Sign - Last Date Time Temp Pulse Resp B/P Pulse Ox O2 Delivery O2 Flow Rate FiO2 02/12/17 06:16 36.6 69 16 147/75 100 Room Air 02/10/17 20:08 6 Intake and Output 02/11/17 02/11/17 02/12/17 Cumulative From/Thru 14:59 22:59 06:59 02/10/17 13:21 - 02/12/17 06:16 Intake Total 1879 ml 1220 ml 6603 ml Output Total 1150 ml 750 ml 3500 ml Balance 729 ml 470 ml 3103 ml Intake Oral 1140 ml 600 ml 2496 ml IV Total 739 ml 620 ml 4107 ml Output Urine Total 1150 ml 750 ml 3500 ml # Bowel Movements 1 1 Result Diagram: 02/12/17 0835 02/12/17 0835 Lab Test 02/10/17 15:41 02/11/17 09:10 02/11/17 20:07 02/12/17 08:35 Erythrocyte Sedimentation Rate 17mm/hr (0-30) Hemoglobin A1c 10.3% (4.8-5.6) Lactic Acid Level 1.0mmol/L (0.4-2.0) Total Bilirubin 0.4mg/dL (0.0-1.2) Aspartate Amino Transf (AST/SGOT) 10U/L (0-50) Alanine Aminotransferase (ALT/SGPT) 9U/L (0-44) Alkaline Phosphatase 111U/L (25-150) C-Reactive Protein 6.3mg/dL (0.0-0.5) Total Protein 7.2g/dL (6.4-8.4) Albumin 3.6g/dL (3.4-5.0) Lipase 14U/L (13-60) Procalcitonin 0.04ng/mL (0.00-0.08) Urine Color Yellow (YELLOW) Urine Appearance Clear (CLEAR,HAZY) Urine pH 5.0 (5.0-8.0) Urine Specific [place] 1.015 (1.003-1.035) Urine Protein 30mg/dL (NEG,TRACE) Urine Glucose (UA) Negativemg/dL (NEGATIVE) Urine Ketones Negativemg/dL (NEGATIVE) Urine Occult Blood Negative (NEGATIVE) Urine Nitrite Negative (NEGATIVE) Urine Bilirubin Negative (NEGATIVE) Urine Urobilinogen Normalmg/dL (NORMAL) Urine Leukocyte Esterase Negative (NEGATIVE) Urine RBC 0-2/hpf (0-2) Urine WBC 0-5/hpf (0-5) Urine Epithelial Cells Few/hpf (NONE-MOD) Urine Crystals None seen (NONE SEEN) Urine Bacteria None/hpf (NONE-FEW) Urine Hyaline Casts None/lpf (NONE) Urine Granular Casts None seen (NONE SEEN) Urine Waxy Casts None seen (NONE SEEN) Urine Red Blood Cell Casts None seen (NONE SEEN) Urine White Blood Cell Casts None seen (NONE SEEN) Urine Mucus None seen (None Seen) Urine Trichomonas None seen (NONE SEEN) Urine Yeast None (NONE SEEN) Urinalysis Comment None Urine Culture Reflexed Not indicated Hold Red Top Tube Received (Received) White Blood Count 11.5th/mm3 (3.8-10.1) Red Blood Count 5.04mil/mm3 (4.40-5.80) Hemoglobin 13.7g/dL (13.8-17.2) Hematocrit 40.6% (41.0-50.0) Mean Corpuscular Volume 80.6fL (81-100) Mean Corpuscular Hemoglobin 27.2pg (27.0-35.0) Mean Corpuscular Hemoglobin Concent 33.7% (32.0-37.0) Red Cell Distribution Width 13.9% (12.3-15.4) Platelet Count 303bil/L (150-400) Neutrophils (%) (Auto) 65.6% (40-74) Lymphocytes (%) (Auto) 23.6% (14-46) Monocytes (%) (Auto) 8.3% (4-12) Eosinophils (%) (Auto) 1.7% (0-5) Basophils (%) (Auto) 0.5% (0-3) Sodium Level 139mEq/L (134-144) Potassium Level 4.3mEq/L (3.5-5.2) Chloride Level 100mEq/L (97-108) Carbon Dioxide Level 24mmol/L (18-29) Blood Urea Nitrogen 12mg/dL (6-24) Creatinine 0.79mg/dL (0.76-1.27) Estimat Glomerular Filtration Rate 109mL/min (>59) Glucose Level 168mg/dL (60-99) Calcium Level 8.6mg/dL (8.5-10.1) Exam General: Mild Distress Lungs: Clear to Auscultation Additional Information: Reexam shows minimal serosanguineous drainage on the bandage, the foot continues to be diffusely erythematous with less edema. The dorsal wound shows does show focal recurrent necrosis and there does appear to be some necrotic tissue within the depth of the wound. No martinez purulence or malodor. I cannot palpate pedal pulses, although the extremity is warm and capillary refill is only mildly delayed at 3-5 seconds. The sub-first metatarsal head lesion appears to be granulating, but there continues to be 1-2 cm of focal erythema medially. Assessment & Plan Impression Dysvascular left lower extremity with high-grade occlusion at the SFA and popliteal level which will likely prevent wound healing and which requires intravascular intervention. Problems: Plan The foot is redressed and bandage today. I have discussed the patient's condition, the development of focal soft tissue necrosis status post amputation of the digit which is an ominous sign with the hospitalist Dr. Pace, who has contacted interventional cardiology, regarding semi-urgent revascularization , in the next day or 2. Dr. Terry has been contacted, agrees to perform the procedure and has ordered a CT with plan to perform this procedure in the a.m. Patient will require additional tissue debridement after allowing the necrosis to demarcate post revascularization. I had a prolonged discussion explaining the situation and potential for limb loss to this patient, and the expresses understanding, states he intends to quit smoking, and does agree to obtain a PCP and manage his diabetes more responsibly upon discharge. The assistance of Dr Pace and Mara is greatly appreciated. Hoang Long DPM Feb 12, 2017 11:18
--- NOTE | 2017-02-12 12:10 | PCM.PNMED ---
Subjective Date of Service Feb 12, 2017 Subjective Pt reports pain at site of amputation. Blood sugars have been elevated overnight 180-200. Exam Vital Signs Vital Sign - Last Date Time Temp Pulse Resp B/P Pulse Ox O2 Delivery O2 Flow Rate FiO2 02/12/17 11:13 77 16 98 Room Air 02/12/17 06:16 36.6 147/75 02/10/17 20:08 6 Intake and Output 02/11/17 02/11/17 02/12/17 Cumulative From/Thru 15:00 23:00 07:00 02/10/17 13:21 - 02/12/17 06:16 Intake Total 1879 ml 1220 ml 6603 ml Output Total 1150 ml 750 ml 3500 ml Balance 729 ml 470 ml 3103 ml Intake Oral 1140 ml 600 ml 2496 ml IV Total 739 ml 620 ml 4107 ml Output Urine Total 1150 ml 750 ml 3500 ml # Bowel Movements 1 1 Exam Gen: NAD, AOx4, HEENT: NCAT, PERRLA, EOMI, MMM, sclera anicteric. Neck: Soft, supple, no thyromegaly/JVD/LAD. Resp: CTAB, no R/R/W. CV: S1 S2, RRR, No M/R/G Abd: Soft, (+) BS, NT/ND, no guarding/rebound/organomegaly. Ext: bilateral peripheral Pulses- weak. Left foot bandaged- some serosanguinous drainage appreciated. Can move toes. Sensation intact. Skin: warm/dry/intact Neuro/Psych: Cooperative, appr mood/affect. CN II-XII grossly intact. No focal deficits. IVs and Medications Medications Reviewed: Medications were reviewed in detail Lab and Diagnostics Result Diagram: 02/12/1735 02/12/17 0835 Microbiology Laboratory Tests Test 02/10/17 15:41 White Blood Count 13.0th/mm3 (3.8-10.1) Red Blood Count 5.41mil/mm3 (4.40-5.80) Hemoglobin 14.7g/dL (13.8-17.2) Hematocrit 42.9% (41.0-50.0) Mean Corpuscular Volume 79.3fL (81-100) Mean Corpuscular Hemoglobin 27.2pg (27.0-35.0) Mean Corpuscular Hemoglobin Concent 34.3% (32.0-37.0) Red Cell Distribution Width 14.1% (12.3-15.4) Platelet Count 296bil/L (150-400) Neutrophils (%) (Auto) 69.2% (40-74) Lymphocytes (%) (Auto) 23.0% (14-46) Monocytes (%) (Auto) 6.8% (4-12) Eosinophils (%) (Auto) 0.5% (0-5) Basophils (%) (Auto) 0.3% (0-3) Sodium Level 137mEq/L (134-144) Potassium Level 3.7mEq/L (3.5-5.2) Chloride Level 100mEq/L (97-108) Carbon Dioxide Level 22mmol/L (18-29) Blood Urea Nitrogen 22mg/dL (6-24) Creatinine 0.80mg/dL (0.76-1.27) Estimat Glomerular Filtration Rate 107mL/min (>59) Glucose Level 212mg/dL (60-99) Lactic Acid Level 1.0mmol/L (0.4-2.0) Calcium Level 9.3mg/dL (8.5-10.1) Total Bilirubin 0.4mg/dL (0.0-1.2) Aspartate Amino Transf (AST/SGOT) 10U/L (0-50) Alanine Aminotransferase (ALT/SGPT) 9U/L (0-44) Alkaline Phosphatase 111U/L (25-150) Total Protein 7.2g/dL (6.4-8.4) Albumin 3.6g/dL (3.4-5.0) Lipase 14U/L (13-60) X-Rays, CTs and MRIs LLE Arterial US showed signficant stentosis between popliteal and superficial femoral aa. X-ray exam 3 views left foot of 02/09/2017 show mild diffuse osteopenia, subtle cortical defect and lytic lesion lateral proximal phalangeal head with no gross fractures or severe osteolysis noted Assessment & Plan 56-year-old pleasant male history of diabetes type II uncontrolled not currently on medications, diabetic neuropathy, smoker presenting, recent injury of fifth left toe 10 days prior sent to the ED by Podiatry for gangrenous fifth toe left foot and cellulitis of the distal lateral left forefoot s/p amputation of the gangrenous fifth toe on 02/[address] Long. Gangrenous fifth toe left foot and cellulitis of the distal lateral left forefoot- poa, active. s/p amputation of the gangrenous fifth toe on 02/[address] Long. WBC- 13, Does not meet criteria for Sepsis. Likely due to uncontrolled diabetes and delay in seeking medical assistance. Pt have have peripheral vascular disease and weak peripheral pulses. -X-ray exam 3 views left foot of 02/09/2017 show mild diffuse osteopenia, subtle cortical defect and lytic lesion lateral proximal phalangeal head with no gross fractures or severe osteolysis noted -Started IV abx on 02/10- Vancomycin and Zosyn. Blood Cultures- +Staph Aureus and +Strep B -c/w IVF, Diluadid prn, Oxycodone prn. -Podiatry, Dr. Long- noted development of focal soft tissue necrosis status post amputation of the digit Patient will require additional tissue debridement after allowing the necrosis to demarcate post revascularization. 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 - Started Plavix. - Podiatry following, Dr. Hoang Long. Requested LLE Arterial US showed signficant stentosis between popliteal and superficial femoral aa. Rec Re- Vascularization. - Interventional Cardiology Consult- Dr. Gil Terry, recs CT Angio runoff. NPO past Mn for likely re-vasc of LLE in AM. - Will follow up after CTA. Diabetes type II uncontrolled- chronic, active- Pt not currently taking meds for > 2 yrs. Pt was on insulin in past. - HBA1C- pending. - Added 10units Lantus BID, 5u Lispro with meals. - Start SSI, will calculate 24 hr and determine insulin needs. - Consider Insulin gtt if need better control. Smoking Abuse- chronic, active- Cessation advised. Nicotine patch. CXR-No acute pulmonary process. Code- Full DVT ppx- SCD. Consider heparin post-op 24 hrs. Acetaminophen for mild pain when necessary. Bowel regimen Senna and MiraLAX scheduled and PRN. Zofran when necessary for nausea and vomiting. Status- Patient is admitted under inpatient status expected length of stay greater than 2 midnights due to severity of presenting symptoms, risk of adverse events, and complexity of treatment plan. GI Prophylaxis: Not indicated VTE Mechanical Devices: Intermittant Pneumatic CD Resuscitation Status: CPR: Attempt Resuscitation Nikolay Middleton MD Feb 12, 2017 12:10
[2017-02-12] MEDS: diphenhydrAMINE 25 mg Capsule PO PRN ×2 (12:14→21:39)
--- NOTE | 2017-02-12 14:35 | DRSVH ---
PROCEDURE: CT ANGIOGRAPHY OF THE AORTA WITH RUN-OFF WITH AND WITHOUT CONTRAST ([id number]) INDICATIONS: PVD, gangrene of great toe, stenosis seen on ultrasound. TECHNIQUE: After the administration of intravenous contrast, 2 and 5 mm sections acquired from T12 to the feet, with optional delayed image acquisition from the knees to the feet. 3-dimensional maximum intensity projection (MIP) coronal and sagittal reformats, and/or 3-dimensional volume rendering reformatting w as then performed. For radiation dose reduction, the following was used: automated exposure control . COMPARISON: [facility], [place], US ARTERY LEG DPLX UNI LT, 02/11/2017, 12:25. FINDINGS: Image quality: Excellent. Extravascular tissues: Visualized lung bases are clear. Heart size is normal. Liver and spleen are normal in size and enhancement. Gallbladder appears within normal limits without calcified gallstone s. Biliary system is non dilated. Pancreas enhances normally. The adrenal nodules. Kidneys demons trate no hydronephrosis. Small and large bowel loops demonstrate normal wall thickness and enhanceme nt. There is moderate colonic stool distention suggesting constipation. Colonic diverticulosis is p resent without acute diverticulitis. No free fluid or air. No retroperitoneal or mesenteric adenopat hy. No ventral hernias. Bladder wall thickness is normal. No inguinal hernias or adenopathy. No s uspicious bony lesions. No vertebral body compression fractures. Abdominal aorta: The abdominal aorta is normal in caliber and patent with mild scattered atherosclero tic plaque associated with minimal narrowing of less than 50%. There is mild narrowing of less than 50% at the origins of the celiac and superior mesenteric arteries. The inferior mesenteric artery ap pears patent. There are single renal arteries bilaterally which appear patent with minimal narrowing in the proximal left renal artery. Right lower extremity: The right common iliac artery appears widely patent along its course. There i s high-grade narrowing a more distal branches of the internal iliac artery. The external iliac arter y appears patent. There is mild narrowing of less than 50% in the right common femoral artery. The deep femoral artery appears patent. The superficial femoral artery is widely patent in the proximal and mid segments. Distally, there is atherosclerotic plaque with segmental narrowing of up to approx imately 50%. The operative artery demonstrates minimal narrowing proximally. In the distal poplitea l, there is moderate segmental narrowing of up to approximately 70% with a focal severe stenosis of g reater than 70% just proximal to the anterior tibial artery origin. The anterior tibial artery is pa tent at its origin with subsequent high-grade stenosis or occlusion approximately 1.5 cm from its charlie gin. There is diminutive reconstituted flow demonstrated in the distal anterior tibial artery with d iminutive flow demonstrated in the dorsalis pedis at the level of the ankle. The tibial peroneal duncan nk demonstrates high-grade stenosis with minimal flow. The peroneal artery is opacified with multifo donna calcified plaque along its course but demonstrates minimal opacification at the level of the ankl e. The posterior tibial artery demonstrates multifocal high-grade stenoses along its course but demo nstrates opacified flow at the level of the ankle. Left lower extremity: The left common iliac artery appears patent along its course. There is a short segment of moderate narrowing in the proximal left internal iliac artery of approximately 60-70%. T here also high-grade stenoses of more distal branches of the internal iliac artery. The external earle ac artery appears patent along its course. The common femoral artery demonstrates minimal narrowing of less than 20%. The deep femoral artery appears patent. The superficial femoral artery is widely patent in its proximal and mid segments. There is [id number] segmental narrowing in the distal segment of up to approximately 50-60%. There is a segment of apparent occlusion in the left poplite al artery measuring approximately 5 cm in length with subsequent minimal reconstituted flow. There i s segmental high grade stenosis or occlusion in the proximal anterior tibial artery. There is subseq uent reconstitution of flow with patent flow demonstrated to the level of the ankle into the dorsalis pedis artery. The tibioperoneal trunk appears patent with patent flow in the proximal posterior tib ial and peroneal arteries. There is segmental occlusion or high-grade stenosis within the proximal p eroneal artery with subsequent reconstitution of flow in the mid lower leg. There is opacified flow demonstrated to the level of the ankle. The posterior tibial artery demonstrates occlusion proximall y with diminutive reconstituted flow distally at the level of the ankle. IMPRESSION: 1. Segmental occlusion or near-occlusion in the left popliteal artery. 2. Short segment severe stenosis in the distal right popliteal artery. 3. Multifocal high-grade stenoses or occlusions demonstrated within the bilateral lower leg arteries . At the level of the ankles, there is reconstituted flow with three-vessel runoffs demonstrated eduin aterally with diminutive opacification. 4. Additional multifocal narrowing of up to approximately 50% demonstrated elsewhere in the lower ex tremities as described. Dictated by: Mega Patel M.D. on 02/12/2017 at 14:01 Approved by: Mega Patel M.D. on 02/12/2017 at 14:33
[2017-02-12 18:25] VITALS: BP 174/84; PULSE 59; RESP 18; O2SAT 99
[2017-02-12] MEDS ORDERED: Vancomycin Serum Trough XX ONE (19:30)
[2017-02-12 20:46] VITALS: BP 132/78; PULSE 80; RESP 18; O2SAT 95
--- NOTE | 2017-02-12 22:09 | PCM.PHAPRO ---
Progress Date of Service: Feb 12, 2017 Left 5th toe injury VANCOMYCIN MANAGEMENT A\ 56 YO M ADMITTED WITH OSTEO OF 5TH METATARSUS VANCOMYCIN GOAL =15-20 VANCOMYCIN TROUGH =9.2 WITH VANCOMYCIN 1500MG IV Q12H DOSING VANCOMYCIN TROUGH WAS DRAWN SLIGHTLY LATE WHICH MAY HAVE MADE IS SLIGHTLY LESS . WBC=1.5 AFEBRILE SCR=0.79 PT IS ALSO RECEIVING ZOSYN P\ WILL CHANGE VANCOMYCIN 1000MG IV Q8H WITH FIRST DOSE STARTING 02/13 0600 AND CHECK A VANCOMYCIN TROUGH BEFORE THE 4TH DOSE 02/14 0530. WILL MONITOR UO AND SERUM CREATININE DAILY Desmond Garcia [facility] Feb 12, 2017 22:09
[2017-02-12 22:24] VITALS: BP 157/77; PULSE 66; RESP 17; O2SAT 97
[2017-02-13] VITALS (17 sets, daily range): BP systolic 132–170; BP diastolic 61–97; PULSE 50–87; RESP 15–20; O2SAT 92–98
[2017-02-13] MEDS: Heparin 5,000 Unit/mL Inj SUBQ SCH ×3 (00:40→18:25)
[2017-02-13] MEDS: HYDROmorphone 1 mg/mL Inj IVPUSH PRN ×5 (00:41→17:36)
[2017-02-13] MEDS: 0.9% Sodium Chloride 1,000 ML IV SCH ×2 (03:03→18:27)
[2017-02-13] MEDS: Piperacillin-Tazo 3.375 Gm Inj 3.375 GM in Dextrose 5% Minibag Plus 50 ML IV SCH (04:40)
[2017-02-13] MEDS ORDERED: 0.9% Sodium Chloride 100 ML ONE ×2 (05:09→14:25)
[2017-02-13] MEDS ORDERED: Vancomycin Inj 1,000 MG in IV Premix 1 EACH IV SCH (06:00)
[2017-02-13] MEDS: Insulin LISPRO 300 Unit/3 mL Inj SUBQ SCH ×4 (08:00→20:47)
[2017-02-13] MEDS: Insulin GLARgine 100 Unit/mL Syringe SUBQ SCH ×2 (08:30→20:46)
--- NOTE | 2017-02-13 12:16 | CONS ---
[address] [address] CONSULTATION REPORT PATIENT: MARIFER FULTON : 1960 MR#: [id number] ADMIT: 02/10/2017 JOB ID: [id number] DATE OF SERVICE: 02/13/2017 REQUEST BY: Hoang Long DPM REASON FOR EVALUATION: Peripheral artery disease with ulcer and abscess of the left foot. HISTORY OF PRESENT ILLNESS: The patient is a 56 years old male with history of longstanding diabetes for over 10 years, being noncompliant and lifelong smoker. He used to be on insulin in the past, and he stopped taking medication on his own. The patient has experienced claudication of lower extremity for the past year with the left worse than the right. He was able to walk for three blocks before he has to stop and rest for 5 minutes before he can walk again last summer. This has been progressively worse. He injured his left foot two weeks ago. There was bleeding at the site. The patient was admitted to [facility] with gangrene of the fifth digit left foot and cellulitis of the left forefoot on February 10, 2017. He had amputation of the 5th digit left foot and debridement of first metatarsal head left foot on February 10, 2017. Arterial duplex ultrasound was performed on February 10, 2017. It demonstrated decreased velocity with low resistance in the distal left lower extremity beginning within the popliteal artery suggestive of a hemodynamically significant stenosis between the distal superficial femoral artery and popliteal artery. CT angiogram was performed on February 12, 2017. It showed segmental occlusion or near occlusion of the left popliteal artery. Short-segment severe stenosis in the distal right popliteal artery. Multifocal high-grade stenosis or occlusion demonstrated within the bilateral lower legs arteries. At the ankle levels, there is reconstituted flow with three-vessel runoff demonstrated bilaterally with diminutive opacifications. Additional multifocal narrowing of up to approximately 50% demonstrated elsewhere in the lower extremity as described. PAST MEDICAL HISTORY: 1. Diabetes since 2004. 2. He denies hypertension or hypercholesterolemia. CURRENT MEDICATIONS: Reviewed. SOCIAL HISTORY: He lives with his in [place]. He started smoking when he was 17 years old. He smokes about one pack per day. He denies alcohol or drugs. FAMILY HISTORY: No history of premature coronary artery disease. REVIEW OF SYSTEMS: All 10 systems are reviewed and noncontributory. He denies snoring. PHYSICAL EXAMINATION: Reveals an overweight male appearing in no acute distress. Temperature is 36.6. Blood pressure is 158/88. Pulse 50. Skin is warm and dry. Head and face have normal configuration. Anicteric sclerae. Dry mucosa. Narrow oropharynx. Neck is supple. No jugular venous distention or carotid bruits. Chest normal expansion. Lungs are clear to auscultation. Heart the first and second heart sounds are normal. No gallop or murmur. Abdomen is soft, nontender. No abdominal bruits. Extremity no clubbing or cyanosis. Nicotine stained finger. Status post amputation of the left fifth toe. Bilateral posterior tibial and dorsalis pedis pulses are absent. No femoral bruits. Neurologic, awake and oriented x3. BLOOD TESTS: Hemoglobin 13.7, WBC 11.5, platelet 303. Sodium 139, potassium 4.3, chloride 100, bicarb 24, BUN 12, creatinine 0.79. Glucose 168. Hemoglobin A1c 10.3. IMPRESSION: 1. Peripheral artery disease with ulcer and cellulitis of the left foot, status post left fifth toe amputation. 2. Uncontrolled diabetes. 3. History of medical noncompliance. 4. Hypertension. 5. Unknown lipid status. 6. Nicotine addiction. PLAN: I have personally reviewed this artery duplex ultrasound and CT angiogram. I believe that the patient would benefit from percutaneous intervention to the left popliteal artery and [id number] vessels. The risks and benefits of procedure have been explained to the patient. He understands and agrees to proceed with procedure. I also emphasized the importance of taking his medications as instructed. He understands that if he does not follow instructions and take medication on a regular basis, those arteries will close off. He was advised to stop smoking. EDDIE
--- NOTE | 2017-02-13 12:52 | PCM.PNPOD ---
Subjective Date of Service: Feb 13, 2017 Date of Service: Feb 13, 2017 Visit Information: Reason for Visit 5TH Toe Necrosis Surgery/Surgery Date Post-Op Day # Date of Admission: Feb 10, 2017 at 15:22 Hospital Day # Subjective: 56-year-old male is seen for follow-up of fifth digit amputation and is scheduled for revascularization procedure this afternoon. Patient states he is not feeling well largely due to being nothing by mouth, admits to having lost his temper earlier this morning and subsequently apologized to the staff. He denies fever or chills, modest foot pain, no nausea Objective Vital Sign - Last Date Time Temp Pulse Resp B/P Pulse Ox O2 Delivery O2 Flow Rate FiO2 02/13/17 12:06 36.6 54 18 158/97 98 Room Air 02/10/17 20:08 6 Intake and Output 02/12/17 02/12/17 02/13/17 Cumulative From/Thru 14:59 22:59 06:59 02/10/17 13:21 - 02/13/17 06:16 Intake Total 2474 ml 2012 ml 23353 ml Output Total 5 ml 2200 ml 1575 ml 7280 ml Balance -5 ml 274 ml 437 ml 3809 ml Intake Oral 1412 ml 636 ml 4544 ml IV Total 1062 ml 1376 ml 6545 ml Output Urine Total 2200 ml 1575 ml 7275 ml Estimated Blood Loss 5 ml 5 ml # Bowel Movements 1 Result Diagram: 02/12/17 0835 02/13/17 0515 Lab Test 02/10/17 15:41 02/11/17 09:10 02/11/17 20:07 02/12/17 08:35 Erythrocyte Sedimentation Rate 17mm/hr (0-30) Hemoglobin A1c 10.3% (4.8-5.6) Lactic Acid Level 1.0mmol/L (0.4-2.0) Total Bilirubin 0.4mg/dL (0.0-1.2) Aspartate Amino Transf (AST/SGOT) 10U/L (0-50) Alanine Aminotransferase (ALT/SGPT) 9U/L (0-44) Alkaline Phosphatase 111U/L (25-150) C-Reactive Protein 6.3mg/dL (0.0-0.5) Total Protein 7.2g/dL (6.4-8.4) Albumin 3.6g/dL (3.4-5.0) Lipase 14U/L (13-60) Procalcitonin 0.04ng/mL (0.00-0.08) Urine Color Yellow (YELLOW) Urine Appearance Clear (CLEAR,HAZY) Urine pH 5.0 (5.0-8.0) Urine Specific Webster 1.015 (1.003-1.035) Urine Protein 30mg/dL (NEG,TRACE) Urine Glucose (UA) Negativemg/dL (NEGATIVE) Urine Ketones Negativemg/dL (NEGATIVE) Urine Occult Blood Negative (NEGATIVE) Urine Nitrite Negative (NEGATIVE) Urine Bilirubin Negative (NEGATIVE) Urine Urobilinogen Normalmg/dL (NORMAL) Urine Leukocyte Esterase Negative (NEGATIVE) Urine RBC 0-2/hpf (0-2) Urine WBC 0-5/hpf (0-5) Urine Epithelial Cells Few/hpf (NONE-MOD) Urine Crystals None seen (NONE SEEN) Urine Bacteria None/hpf (NONE-FEW) Urine Hyaline Casts None/lpf (NONE) Urine Granular Casts None seen (NONE SEEN) Urine Waxy Casts None seen (NONE SEEN) Urine Red Blood Cell Casts None seen (NONE SEEN) Urine White Blood Cell Casts None seen (NONE SEEN) Urine Mucus None seen (None Seen) Urine Trichomonas None seen (NONE SEEN) Urine Yeast None (NONE SEEN) Urinalysis Comment None Urine Culture Reflexed Not indicated Hold Red Top Tube Received (Received) White Blood Count 11.5th/mm3 (3.8-10.1) Red Blood Count 5.04mil/mm3 (4.40-5.80) Hemoglobin 13.7g/dL (13.8-17.2) Hematocrit 40.6% (41.0-50.0) Mean Corpuscular Volume 80.6fL (81-100) Mean Corpuscular Hemoglobin 27.2pg (27.0-35.0) Mean Corpuscular Hemoglobin Concent 33.7% (32.0-37.0) Red Cell Distribution Width 13.9% (12.3-15.4) Platelet Count 303bil/L (150-400) Neutrophils (%) (Auto) 65.6% (40-74) Lymphocytes (%) (Auto) 23.6% (14-46) Monocytes (%) (Auto) 8.3% (4-12) Eosinophils (%) (Auto) 1.7% (0-5) Basophils (%) (Auto) 0.5% (0-3) Sodium Level 139mEq/L (134-144) Potassium Level 4.3mEq/L (3.5-5.2) Chloride Level 100mEq/L (97-108) Carbon Dioxide Level 24mmol/L (18-29) Blood Urea Nitrogen 12mg/dL (6-24) Estimat Glomerular Filtration Rate 109mL/min (>59) Glucose Level 168mg/dL (60-99) Calcium Level 8.6mg/dL (8.5-10.1) Test 02/12/17 20:40 02/13/17 05:15 Vancomycin Level Trough 9.2mcg/mL Creatinine 0.87mg/dL (0.76-1.27) Exam Physical Exam Patient seen laying in bed, no acute distress. General: Mild Distress Lungs: Clear to Auscultation Surgical Cast or Splint: Other Additional Information: Dressing dry and intact, minimal drainage, little change in the condition of the foot continues to be hyperemia, mild edema, and the visible deep tissues do exhibit something of a necrotic appearance rather than good quality granulation tissue. The dorsal incision is somewhat dusky but not overtly necrotic or dehisced. Pulses continue to be nonpalpable on the left, trace to nonpalpable on the right. Patient was seen accompanied by Dr. Carnes of infectious disease today. Assessment & Plan Impression Little change in the condition of the wound, healing potential quite guarded given patient's vascular status. Problems: Plan Revascularization scheduled this afternoon with , wound redressed with saline wet-to-dry today and will monitor progression status post revascularization. Hoang Long DPM Feb 13, 2017 12:52
--- NOTE | 2017-02-13 13:14 | CONS ---
[address] [address] CONSULTATION REPORT PATIENT: MARIFER FULTON : 1960 MR#: [id number] ADMIT: 02/10/2017 JOB ID: [id number] DATE OF SERVICE: 02/13/[address] Long for this timely consult. REASON FOR CONSULTATION: Severe left diabetic foot infection with probable underlying osteomyelitis. HISTORY OF THE PRESENT ILLNESS: The patient is a 56-year-old gentleman who was in his usual state of compensated health until about 10 days ago, when he dropped a heavy door on his left 5th toe, causing the toe to split open. Following that, he developed increasing pain, erythema, and swelling in and around the left lateral forefoot. He eventually went on February 09 to the [facility] [place] and then Dr. Long of Podiatry was contacted and recommended the patient be sent to the emergency department and he was sent there and was admitted through the ED on February 10. The patient was taken to the operating room, and the left 5th toe was removed, but since that time, there has been some progressive necrosis of the remaining left distal forefoot as well as continued severe erythema and pain involving most of the left dorsal foot. The patient also notes in addition to dropping the door on his left 5th toe, he had recently stepped on a sharp object and suffered an injury and small ulcer under the left 1st metatarsal on the plantar aspect. The patient states that despite this very severe left foot infection. He has had no fevers, chills, or sweats. He has had no pulmonary or GI symptoms. Of great importance, however, is the fact the patient states that for months his walking has been very limited to about three months in that he developed severe claudication pain in his calf and to a lesser extent, the thigh, and is forced to stop and rest, at which point he can take off again. This has been occurring in conjunction with relatively poorly controlled diabetes and continued significant cigarette smoking. The patient tells me as result of his toe amputation, he has now sworn off cigarettes and will never do it again. PAST MEDICAL HISTORY: 1. Longstanding type 2 diabetes for at least 12 years. Currently completely under control without meds. 2. Severe diabetic neuropathy. 3. Peripheral vascular disease. 4. Ongoing cigarette smoking. 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 He drank significantly back in his 20s but has been abstinent for many years. He is a daily cigarette smoker or at least he was up until this weekend when he says he quit. He lives in [place] with his in a home. FAMILY HISTORY: Negative for TB in any family member. REVIEW OF SYSTEMS: Was done. At this point, the patient has no headache, no change in vision or change in mental status. He does not have diabetic retinopathy as far as he knows, but it does not sound like he has been checked. In terms of oral care, the patient reports he has lost significant teeth and sometimes has gum pain. He has no sore throat. He denies cough or shortness of breath. No significant chest pain. No nausea, vomiting, diarrhea, or dysuria. He has excellent urine output and no diarrhea is noted, as reported. No swelling of any joints except those involving his left foot. No significant skin rash except his left foot. He reports both his feet are quite numb. Otherwise, he has no specific neurologic complaints. Remainder of the review of systems negative. PHYSICAL EXAMINATION: Reveals an afebrile gentleman. He has been afebrile since admission on the afternoon of the February 10, so three days ago. Temp 36.6, pulse 54, respiratory rate 18, blood pressure 158/97. He is saturating well on room air. No apparent distress. Head without trauma. No temporal wasting. Eyes: Without conjunctivitis or scleral icterus. Oral cavity without thrush or pharyngitis but numerous teeth are missing and there is some low-level gingivitis evident especially along the missing upper teeth. Neck supple. No adenopathy or JVD. Lungs quite clear. Cardiac tones: Regular rate and rhythm without murmur. Abdomen soft and nontender without organomegaly. No suprapubic fullness. He does not have a Villanueva catheter. Does not have inguinal adenopathy. He has femoral pulses bilaterally. Below that, I do not feel pulses really on either side. No popliteals. No dorsal pedals, no posterior tibials. Both feet have very slow capillary refill but they are warm to touch. The patient's left foot dressing was removed with Dr. Long who was in evaluating the patient at the same time I was. His entire left foot is erythematous, tender and warm, and this tenderness is quite pronounced given his degree of neuropathy. The left 5th toe has been resected and there is a necrotic pit at the base of that toe which Dr. Long was able to probe and then pack without any significant pain, showing that at least in the distal foot he has quite a severe neuropathy. There is also a shallow ulcer present over the base of the 1st metatarsal, but this appears uninfected. The right foot has a couple well-healed scabs basically but no evidence of infection. Both feet though have a symmetrical and very severe neuropathy with dramatically reduced sensation, as well as proprioreception. There is no evidence for synovitis or change in other joints outside of the feet and neurologically he is intact except for the neuropathy. LABORATORIES: Include white count 11,500, completely normal diff. Creatinine 0.67. Urinalysis 0-5 white cells. Micro studies include negative blood cultures. Culture of the foot is growing MSSA which is sensitive but resistant to clindamycin, sensitive to all other agents and group B strep. Anaerobic cultures are pending at this point and are too young really to call. Imaging of the foot available here was reviewed, but it shows just postoperative resection of the toe. We also have a film of the foot from February 09, which shows a fracture of the 5th proximal interphalangeal joint and was consistent with developing osteo. Chest x-ray basically clear. IMPRESSION: This is an unfortunate, 56-year-old gentleman with uncontrolled diabetes, which he says he has had for about 12 years. This uncontrolled diabetes has been made much worse by his long-time cigarette smoking and he has developed progressive diabetic neuropathy. The neuropathy as well as diminished vascular supply to the left foot and smoking have combined to produce a rather perfect storm involving his left foot, which is now infected with two of the worst microorganisms that can occur in diabetic feet, namely Staph aureus and group B strep. The antibiotic part of this is probably third or fourth in importance as compared to surgical debridement of the foot as well as revascularization, but nonetheless, it is important. The best antibiotic here will likely be cefazolin, though one could think of many other possibilities. Should we find anaerobes, we will add Flagyl to that or perhaps switch to an agent such as ertapenem. The exact duration of antibiotic therapy is unclear at this point, but in my discussion with Dr. Long, I think we both favor a relatively long course. Whether there is still osteomyelitis in the remaining foot is unclear but certainly a great deal or all of his foot is at risk from this infection at this juncture. RECOMMENDATIONS: 1. Will switch the Zosyn he is receiving now to cefazolin. 2. We can stop the vancomycin as we know this is MSSA and minimize the potential for renal toxicity in this complex diabetic patient. 3. Will continue to follow this complex patient with you. Thank you very much.
[2017-02-13] MEDS ORDERED: Heparin 10,000 Unit/1,000 mL NS Premix IV ONE ×2 (13:32→14:52)
[2017-02-13] MEDS ORDERED: Heparin 1,000 Units/500 mL NS Premix IV ONE (13:32)
[2017-02-13] MEDS ORDERED: fentaNYL-PF 50 mCg/mL 2 mL Inj ONE ×3 (13:55→15:36)
[2017-02-13] MEDS ORDERED: Heparin 1,000 Unit/mL 10 mL Inj ONE ×2 (15:19→15:50)
[2017-02-13] MEDS ORDERED: CeFAZolin Inj 2 GM in IV Premix 1 EACH IV SCH (16:30)
[2017-02-13] MEDS: Ondansetron 2 mg/mL 2 mL Inj IVPUSH PRN ×2 (16:42→17:35)
--- NOTE | 2017-02-13 16:44 | PCM.PNMED ---
Subjective Date of Service Feb 13, 2017 Subjective Pt going for Re-Vascularization today. Exam Vital Signs Vital Sign - Last Date Time Temp Pulse Resp B/P Pulse Ox O2 Delivery O2 Flow Rate FiO2 02/13/17 16:30 82 17 156/69 96 Room Air 02/13/17 12:06 36.6 02/10/17 20:08 6 Intake and Output 02/12/17 02/12/17 02/13/17 Cumulative From/Thru 15:00 23:00 07:00 02/10/17 13:21 - 02/13/17 06:16 Intake Total 2474 ml 2012 ml 15068 ml Output Total 5 ml 2200 ml 1575 ml 7280 ml Balance -5 ml 274 ml 437 ml 3809 ml Intake Oral 1412 ml 636 ml 4544 ml IV Total 1062 ml 1376 ml 6545 ml Output Urine Total 2200 ml 1575 ml 7275 ml Estimated Blood Loss 5 ml 5 ml # Bowel Movements 1 Exam Gen: NAD, AOx4, HEENT: NCAT, PERRLA, EOMI, MMM, sclera anicteric. Neck: Soft, supple, no thyromegaly/JVD/LAD. Resp: CTAB, no R/R/W. CV: S1 S2, RRR, No M/R/G Abd: Soft, (+) BS, NT/ND, no guarding/rebound/organomegaly. Ext: bilateral peripheral Pulses- weak. Left foot bandaged- some serosanguinous drainage appreciated. Can move toes. Sensation intact. Skin: warm/dry/intact Neuro/Psych: Cooperative, appr mood/affect. CN II-XII grossly intact. No focal deficits. IVs and Medications Medications Reviewed: Medications were reviewed in detail Lab and Diagnostics Result Diagram: 02/13/17 1545 02/13/17 0515 Microbiology MITA GS (GRAM STAIN) Final 02/11/17- 1231 GRAM STAIN RESULT NO POLYS NO ORGANISMS SEEN MITA CULT AEROBIC Preliminary 02/13/17-0832 Organism 1 STAPHYLOCOCCUS AUREUS COLONY COUNT/QUANTITY HEAVY GROWTH Organism 2 STREP AGALACTIAE - (GROUP B) COLONY COUNT/QUANTITY HEAVY GROWTH SENSITIVITY COMMENTS Susceptibilty testing to follow. STAPHYLOCOCCUS AUREUS Oxacillin Susceptible Penicillin Resistant Staph spp. are Susceptible to Penicillin stable penicillins, Blactam/Blactamase inhibitor combinations, antistaphyloccal cephems, and carbapenems. 1. STAPHYLOCOCCUS AUREUS M.I.C Interp --------- ------ * CEFAZOLIN S * CLINDAMYCIN >=8 R * ERYTHROMYCIN >=8 R * LINEZOLID 2 S * MOXIFLOXACIN <=0.25 S * OXACILLIN MITA <=0.25 S * RIFAMPIN <=0.5 S * TRIMETHOPRIM/SULFAMETHOXAZOLE <=10 S * VANCOMYCIN <=0.5 S ANAEROBIC CULTURE Preliminary 02/13/17-0832 No ANAEROBES recovered at 48 hours hold for futher observation X-Rays, CTs and MRIs 02/12/17 CT ANGIOGRAPHY OF THE AORTA WITH RUN-OFF WITH AND WITHOUT CONTRAST ( [id number]) IMPRESSION: 1. Segmental occlusion or near-occlusion in the left popliteal artery. 2. Short segment severe stenosis in the distal right popliteal artery. 3. Multifocal high-grade stenoses or occlusions demonstrated within the bilateral lower leg arteries. At the level of the ankles, there is reconstituted flow with three-vessel runoffs demonstrated bilaterally with diminutive opacification. 4. Additional multifocal narrowing of up to approximately 50% demonstrated elsewhere in the lower extremities as described. 02/12- LLE Arterial US showed signficant stentosis between popliteal and superficial femoral aa. X-ray exam 3 views left foot of 02/09/2017 show mild diffuse osteopenia, subtle cortical defect and lytic lesion lateral proximal phalangeal head with no gross fractures or severe osteolysis noted Assessment & Plan 56-year-old pleasant male history of diabetes type II uncontrolled not currently on medications, diabetic neuropathy, smoker presenting, recent injury of fifth left toe 10 days prior sent to the ED by Podiatry for gangrenous fifth toe left foot and cellulitis of the distal lateral left forefoot s/p amputation of the gangrenous fifth toe on 02/[address] Long. Gangrenous fifth toe left foot and cellulitis of the distal lateral left forefoot- poa, active. s/p amputation of the gangrenous fifth toe on 02/[address] Long. WBC- 13, Does not meet criteria for Sepsis. Likely due to uncontrolled diabetes and delay in seeking medical assistance. Pt have have peripheral vascular disease and weak peripheral pulses. -X-ray exam 3 views left foot of 02/09/2017 show mild diffuse osteopenia, subtle cortical defect and lytic lesion lateral proximal phalangeal head with no gross fractures or severe osteolysis noted - Blood Cultures- +Staph Aureus- MSSA and +Strep B -Started IV abx on 02/10- Vancomycin and Zosyn. -ID following, Dr. Carnes- change Zosyn to Cefazolin. Stop Vancomycin. -Podiatry, Dr. Long- noted development of focal soft tissue necrosis status post amputation of the digit Patient will require additional tissue debridement after allowing the necrosis to demarcate post revascularization. 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 - 02/12- CTA run off- Segmental occlusion or near-occlusion L popliteal aa, severe stenosis distal R popliteal aa. - Started Plavix. - Podiatry following, Dr. Hoang Long. Requested LLE Arterial US showed signficant stentosis between popliteal and superficial femoral aa. Rec Re- Vascularization. - Interventional Cardiology Consult- Dr. Gil Terry, recs CT Angio runoff. NPO past Mn for likely re-vasc of LLE in AM. - Regularization to be performed be Dr. Lopez on 02/13. Diabetes type II uncontrolled- chronic, active- Pt not currently taking meds for > 2 yrs. Pt was on insulin in past. - HBA1C- 10.3 - Added 10units Lantus BID, 5u Lispro with meals. - Start SSI, will calculate 24 hr and determine insulin needs. - Upon discharge provide new prescriptions. Smoking Abuse- chronic, active- Cessation advised. Nicotine patch. CXR-No acute pulmonary process. Code- Full DVT ppx- SCD. Consider heparin post-op 24 hrs. Acetaminophen for mild pain when necessary. Bowel regimen Senna and MiraLAX scheduled and PRN. Zofran when necessary for nausea and vomiting. Status- Patient is admitted under inpatient status expected length of stay greater than 2 midnights due to severity of presenting symptoms, risk of adverse events, and complexity of treatment plan. May need new PCP upon discharge. GI Prophylaxis: Not indicated VTE Mechanical Devices: Intermittant Pneumatic CD Resuscitation Status: CPR: Attempt Resuscitation Nikolay Middleton MD Feb 13, 2017 16:44
--- NOTE | 2017-02-13 17:09 | DI96 ---
[address] [address] PERIPHERAL CATHETERIZATION/INTERVENTION REPORT PATIENT: MARIFER FULTON : 1960 MR#: [id number] ADMIT: 02/10/2017 JOB ID: [id number] DATE OF PROCEDURE: 02/13/2017 PATIENT PROFILE: The patient is a 56-year-old male with history of uncontrolled diabetes and lifelong smoker. He presented with gangrene and cellulitis of the left foot. He underwent left 5th toe amputation. PROCEDURE: 1. Conscious sedation for 2 hours and 2 minutes 2. Vascular access from the left groin by antegrade approach under ultrasound guidance. 3. Selective ipsilateral left superficial femoral angiogram with runoff. 4. Unsuccessful attempt at angioplasty to the chronic total occlusion of the left popliteal artery. VASCULAR CLOSURE DEVICE: StarClose. COMPLICATION: None. METHOD: Conscious sedation was achieved with IV Versed and IV fentanyl. Vascular access was obtained from the left groin under 1% lidocaine local anesthesia using a 4-Ghanaian sheath. This was performed under ultrasound guidance by using micropuncture needle. The tip of the sheath initially was in the left profunda artery but it was redirected under fluoroscopy with a SV5 wire into the left superficial femoral artery. It was then exchanged to a 6-Ghanaian sheath. Repeated dose of heparin was given in order to maintain ACT above 225. Selective ipsilateral left superficial femoral angiogram with runoff was performed in the AP view by injecting contrast at a rate of 4 mL/second for 7 seconds. A 4-Ghanaian angled NaviCross catheter was then directed into the above-knee left popliteal artery. An attempt to cross the total occlusion of the below-knee popliteal artery with a [employer] 200 wire was unsuccessful. Somehow a straight tip Glidewire was not available. An attempt with a straight Amplatz wire was unsuccessful. The procedure was terminated. Following sheath removal, hemostasis was achieved by using a StarClose device. The patient tolerated the procedure well. He was transferred to [facility] in good condition. TOTAL CONTRAST USED: 65 mL. TOTAL FLUOROSCOPY TIME: 8.4 minutes. RESULTS: 1. The left superficial femoral artery has minimal irregularity. 2. The above-knee left popliteal artery has minor disease. It becomes totally occluded right at the knee joint. There are well-developed collaterals into the left peroneal and left anterior tibial artery. The left anterior tibial artery is occluded in the proximal 1/3 and diffuse disease in the mid portion and provides flow into the dorsalis pedis. The left peroneal artery is occluded in the proximal 1/3. The distal 2/3 appears normal. 3. The left posterior tibial artery is occluded in the proximal 3/4. There is collateral from the anterior tibial filling into the distal posterior tibial artery. CONCLUSION: 1. Occluded left popliteal artery in the P2 and P3 segments. 2. Occluded proximal 1/3 of the left anterior tibial and left peroneal arteries. 3. Occluded proximal 3/4 of the left posterior tibial artery. 4. Unsuccessful attempt at angioplasty to the left popliteal artery. MTDD
[2017-02-13] MEDS ORDERED: Promethazine 12.5 mg/50 mL D5W IV PRN ×2 (17:45)
[2017-02-13] MEDS ORDERED: 0.9% Sodium Chloride 1,000 ML IV ONE (19:00)
[2017-02-13] MEDS ORDERED: Ondansetron 2 mg/mL 2 mL Inj IVPUSH PRN (19:25)
[2017-02-13] MEDS ORDERED: 0.9% Sodium Chloride 250 ML BOLUS IV PRN (19:25)
[2017-02-13] MEDS ORDERED: Atropine 1 mg/10 mL (Code) Syringe IVPUSH PRN (19:25)
[2017-02-13] MEDS: CeFAZolin Inj 2 GM in IV Premix 1 EACH IV SCH (22:13)
[2017-02-14 03:59] VITALS: BP 115/65; PULSE 70; RESP 18; O2SAT 98
[2017-02-14 04:04] LABS: Mean Corpuscular Hemoglobin 26.7 pg (27.0-35.0); Mean Corpuscular Volume 79.8 fL (81-100)
[2017-02-14] MEDS: HYDROmorphone 1 mg/mL Inj IVPUSH PRN (04:07)
[2017-02-14] MEDS ORDERED: Vancomycin Serum Trough XX ONE (05:30)
[2017-02-14 05:33] VITALS: BP 138/76
[2017-02-14] MEDS: CeFAZolin Inj 2 GM in IV Premix 1 EACH IV SCH ×2 (05:40→14:40)
[2017-02-14 08:35] VITALS: BP 167/92; PULSE 48; RESP 16; O2SAT 95
[2017-02-14] MEDS: Insulin GLARgine 100 Unit/mL Syringe SUBQ SCH (08:44)
[2017-02-14] MEDS: Insulin LISPRO 300 Unit/3 mL Inj SUBQ SCH ×2 (08:52→12:40)
--- NOTE | 2017-02-14 08:54 | PROG NOTE ---
[address] [address] PROGRESS NOTE PATIENT: MARIFER FULTON : 1960 MR#: [id number] ADMIT: 02/10/2017 JOB ID: [id number] DATE: 02/14/2017 INFECTIOUS DISEASE FOLLOW UP NOTE: REASON FOR FOLLOWUP: Ischemic left foot with probable osteomyelitis and extensive infection of the left lateral forefoot. INTERVAL HISTORY: Overnight, the patient has reported no fevers, chills or sweats. He has no particular pulmonary or GI symptoms. He continues to have pain in his left foot which he reports has not significantly improved. PHYSICAL EXAMINATION: Reveals an afebrile gentleman, temperature 36.7, blood pressure 138/76, pulse 70, respiratory rate 18. Pulse ox excellent. The patient is in no acute distress. Oral cavity negative. Lungs relatively clear. Abdomen soft and nontender. His left lower extremity remains ischemic in that there are no palpable dorsal, pedal or posterior tibial pulses. Using a Doppler we were unable to find any dorsal pedal pulse. The patient also has a very slow capillary refill time though his feet are not cold per se. The left 5th toe has been amputated and there is some breakdown at the site of the sutured wound. In addition the fairly extensive cellulitis involving most of the left lateral foot has diminished somewhat overnight but is still erythematous and moderately tender but unquestionably improved over yesterday. LABORATORIES: Include white count stable at 11,000, creatinine 0.93. Cultures continue to show MSSA and group B strep from the wound. Blood cultures remain negative. No anaerobes have turned up in the culture of the foot. The patient's aortic arch studies, this was done on the , shows a near total occlusion of the left popliteal artery, severe stenosis in the right popliteal artery, high-grade stenoses in the bilateral lower leg arteries. Yesterday, the patient underwent an attempt at revascularization by Dr. Cook of Cardiology. This was unsuccessful in attempts to open the left popliteal artery which was basically occluded. IMPRESSION: This patient has a combined MSSA and group B strep infection of his left foot which has led to extensive cellulitis as well as osteomyelitis requiring resection of the left 5th toe. The site of the amputation has not healed well and this is almost certainly due to underlying vascular insufficiency as well as his neuropathy. The antibiotics do seem to be helping a bit in that the cellulitic area of the left lateral forefoot is much improved, however. RECOMMENDATIONS: 1. Will continue with Ancef with the plan probably to continue 4-6 weeks of IV antibiotics directed against these pathogens. 2. Perhaps more important than the antibiotics is revascularization and it may be that this patient will require transfer to a center with vascular surgery or perhaps utilizing other services here at our hospital to see if anything can be done to restore improved vascular flow to the left foot. I suspect that without additional revascularization this will be a chronic problem which may lead to amputation.
[2017-02-14 10:26] VITALS: PULSE 72
[2017-02-14 12:39] VITALS: BP 172/82; PULSE 49; RESP 16; O2SAT 99
--- NOTE | 2017-02-14 13:30 | PCM.PNPOD ---
Subjective Date of Service: Feb 14, 2017 Date of Service: Feb 14, 2017 Visit Information: Reason for Visit 5TH Toe Necrosis Surgery/Surgery Date Post-Op Day # Date of Admission: Feb 10, 2017 at 15:22 Hospital Day # Subjective: Patient seen the day after failed attempt to rest popliteal occlusion left lower extremity and other than post procedure nausea states he is feeling fine now Objective Vital Sign - Last Date Time Temp Pulse Resp B/P Pulse Ox O2 Delivery O2 Flow Rate FiO2 02/14/17 12:39 37.1 49 16 172/82 99 Room Air 02/10/17 20:08 6 Intake and Output 02/13/17 02/13/17 02/14/17 Cumulative From/Thru 14:59 22:59 06:59 02/10/17 13:21 - 02/14/17 06:55 Intake Total 883 ml 950 ml 1583 ml 37777 ml Output Total 3325 ml 775 ml 62072 ml Balance 883 ml -2375 ml 808 ml 3125 ml Intake Oral 0 ml 740 ml 5284 ml IV Total 883 ml 950 ml 843 ml 9221 ml Output Urine Total 3025 ml 775 ml 59115 ml Estimated Blood Loss 300 ml 305 ml # Voids 2 2 # Bowel Movements 1 2 Result Diagram: 02/14/17 0330 02/14/17 0330 Lab Test 02/10/17 15:41 02/11/17 09:10 02/11/17 20:07 02/12/17 08:35 Erythrocyte Sedimentation Rate 17mm/hr (0-30) Hemoglobin A1c 10.3% (4.8-5.6) Lactic Acid Level 1.0mmol/L (0.4-2.0) Total Bilirubin 0.4mg/dL (0.0-1.2) Aspartate Amino Transf (AST/SGOT) 10U/L (0-50) Alanine Aminotransferase (ALT/SGPT) 9U/L (0-44) Alkaline Phosphatase 111U/L (25-150) C-Reactive Protein 6.3mg/dL (0.0-0.5) Total Protein 7.2g/dL (6.4-8.4) Albumin 3.6g/dL (3.4-5.0) Lipase 14U/L (13-60) Procalcitonin 0.04ng/mL (0.00-0.08) Urine Color Yellow (YELLOW) Urine Appearance Clear (CLEAR,HAZY) Urine pH 5.0 (5.0-8.0) Urine Specific [place] 1.015 (1.003-1.035) Urine Protein 30mg/dL (NEG,TRACE) Urine Glucose (UA) Negativemg/dL (NEGATIVE) Urine Ketones Negativemg/dL (NEGATIVE) Urine Occult Blood Negative (NEGATIVE) Urine Nitrite Negative (NEGATIVE) Urine Bilirubin Negative (NEGATIVE) Urine Urobilinogen Normalmg/dL (NORMAL) Urine Leukocyte Esterase Negative (NEGATIVE) Urine RBC 0-2/hpf (0-2) Urine WBC 0-5/hpf (0-5) Urine Epithelial Cells Few/hpf (NONE-MOD) Urine Crystals None seen (NONE SEEN) Urine Bacteria None/hpf (NONE-FEW) Urine Hyaline Casts None/lpf (NONE) Urine Granular Casts None seen (NONE SEEN) Urine Waxy Casts None seen (NONE SEEN) Urine Red Blood Cell Casts None seen (NONE SEEN) Urine White Blood Cell Casts None seen (NONE SEEN) Urine Mucus None seen (None Seen) Urine Trichomonas None seen (NONE SEEN) Urine Yeast None (NONE SEEN) Urinalysis Comment None Urine Culture Reflexed Not indicated Hold Red Top Tube Received (Received) Neutrophils (%) (Auto) 65.6% (40-74) Lymphocytes (%) (Auto) 23.6% (14-46) Monocytes (%) (Auto) 8.3% (4-12) Eosinophils (%) (Auto) 1.7% (0-5) Basophils (%) (Auto) 0.5% (0-3) Test 02/12/17 20:40 02/13/17 16:33 02/14/17 03:30 Vancomycin Level Trough 9.2mcg/mL Hold Chavez Top Tube Received (Received) White Blood Count 11.4th/mm3 (3.8-10.1) Red Blood Count 4.65mil/mm3 (4.40-5.80) Hemoglobin 12.4g/dL (13.8-17.2) Hematocrit 37.1% (41.0-50.0) Mean Corpuscular Volume 79.8fL (81-100) Mean Corpuscular Hemoglobin 26.7pg (27.0-35.0) Mean Corpuscular Hemoglobin Concent 33.4% (32.0-37.0) Red Cell Distribution Width 13.6% (12.3-15.4) Platelet Count 317bil/L (150-400) Sodium Level 140mEq/L (134-144) Potassium Level 3.8mEq/L (3.5-5.2) Chloride Level 101mEq/L (97-108) Carbon Dioxide Level 25mmol/L (18-29) Blood Urea Nitrogen 13mg/dL (6-24) Creatinine 0.93mg/dL (0.76-1.27) Estimat Glomerular Filtration Rate 90mL/min (>59) Glucose Level 183mg/dL (60-99) Calcium Level 8.2mg/dL (8.5-10.1) Exam General: Mild Distress Lungs: Clear to Auscultation Surgical Cast or Splint: Other Additional Information: Dressing dry and intact, having recently been changed. There is markedly less erythema and edema on the dorsolateral forefoot, no significant change in the soft tissue wound which does appear slightly necrotic, but has not worsened appreciably since yesterday. Some first metatarsal head lesion appears to be granulating. Assessment & Plan Impression Patient requires revascularization, I was told by Dr. Cook plan is to transfer him to the care of Dr. Patel at [facility] who has agreed to accept the patient for repeat attempt at revascularization. Wound care will be performed per providers at [facility] and I did encourage patient to follow through on his plans to quit smoking and be seen in the podiatry clinic once he is back in the area either for wound care or preventive care. Problems: Hoang Long DPM Feb 14, 2017 13:30
--- NOTE | 2017-02-14 15:03 | PCM.DC.MED ---
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 Segmental occlusion or near-occlusion in the left popliteal artery. 2. Short segment severe stenosis in the distal right popliteal artery. 3. Multifocal high-grade stenoses or occlusions demonstrated within the bilateral lower leg arteries. At the level of the ankles, there is reconstituted flow with three-vessel runoffs demonstrated bilaterally with diminutive opacification. 4. Additional multifocal narrowing of up to approximately 50% demonstrated elsewhere in the lower extremities as described. 02/12- LLE Arterial US showed signficant stentosis between popliteal and superficial femoral aa. X-ray exam 3 views left foot of 02/09/2017 show mild diffuse osteopenia, subtle cortical defect and lytic lesion lateral proximal phalangeal head with no gross fractures or severe osteolysis noted Other Diagnostics PROCEDURE: 1. Conscious sedation for approximately 2 hours. 2. Vascular access from the left groin by antegrade approach under ultrasound guidance. 3. Selective ipsilateral left superficial femoral angiogram with runoff. 4. Unsuccessful attempt at angioplasty to the chronic total occlusion of the left popliteal artery. RESULTS: 1. The left superficial femoral artery has minimal irregularity. 2. The above-knee left popliteal artery has minor disease. It becomes totally occluded right at the knee joint. There are well-developed collaterals into the left peroneal and left anterior tibial artery. The left anterior tibial artery is occluded in the proximal 1/3 and diffuse disease in the mid portion and provides flow into the dorsalis pedis. The left popliteal artery is occluded in the proximal 1/3. The distal 2/3 appears normal. 3. The left posterior tibial artery is occluded in the proximal 3/4. There is collateral from the anterior tibial filling into the distal posterior tibial artery. CONCLUSION: 1. Occluded left popliteal artery in the P2 and P3 segments. 2. Occluded proximal 1/3 of the left anterior tibial and left peroneal artery. 3. Occluded proximal 3/4 of the left posterior tibial artery. 4. Unsuccessful attempt at angioplasty to the left popliteal artery. Mt Tellez MD 02/13/17 4638 Brief History "56-year-old pleasant male history of diabetes type II uncontrolled not currently on medications, diabetic neuropathy, smoker presenting, recent injury of fifth left toe 10 days prior presenting to the ED due to digit turning blue and inc pain. Patient had been seen at [place] urgent care who had instructed patient to go to the ED and also contacted podiatry Dr. Hoang Long informing him that he had a gangrenous fifth digit. Dr. Long contacted patient today after learning that he did not go to the emergency department. Patient initially sustained the injury after door fell on his left foot 10 days ago. He said that he did have bleeding at the site. Both 3 days ago he noticed that he had more redness in the skin surrounding the injury. He says that his toe has been progressively changing color becoming more bluish. Patient says that pain is also increased over the same timeframe. Patient says that he has not seen a doctor in 2 years and has not been taking any medications for his diabetes and that time. He is a daily smoker. Denies any fever or chills. Denies any nausea vomiting diarrhea." Hospital Course Patient is a 56-year-old male who carries a history of decades and heavy smoking , uncontrolled diabetes type II that to the ED 4 days ago with recently injured fifth left toe, sent to the ED by podiatry for gangrenous fifth toe on the left foot and cellulitis of the distal lateral forefoot. Status post amputation of the gangrenous fifth toe on 02/[address] Long, patient developed focal soft tissue necrosis that require additional debridement. A duplex of the lower left extremity was done, showing decreased velocity and follow-up CT angiogram with runoff demonstrated significant stenosis of arteries noted below. Interventional cardiology has attempted angioplasty without success. Given patient has significant left leg pain with fever from ongoing cellulitis and decrease poles. Patient is thus prompt to transfer for higher acuity of care. Spoke to hospitalist Dr. Robison who would accept patient at [facility] and vascular surgeon Dr. Mery Patel who agreed to consult. Gangrenous fifth toe left foot and cellulitis of the distal lateral left forefoot- poa, active. -2nd to uncontrolled DM II and delay in seeking medical territory manager in the setting of PVD. - s/p amputation of the gangrenous fifth toe on 02/[address] Long. -X-ray exam 3 views left foot of 02/09/2017 show mild diffuse osteopenia, subtle cortical defect and lytic lesion lateral proximal phalangeal head with no gross fractures or severe osteolysis noted -Blood Cultures- +Staph Aureus- MSSA and +Strep B -currently on Cefazolin only. Started IV abx on 02/10 with Vancomycin and Zosyn now d/c. 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 - 02/12- CTA run off- -left popliteal artery -Left anterior tibial +left peroneal artery -left posterior tibial artery - Started Plavix. - Failed revascularization by Dr. Tellez on 02/13. Diabetes type II uncontrolled- chronic, active- Pt not currently taking meds for > 2 yrs. Pt was on insulin in past. - HBA1C- 10.3 - Added 10units Lantus BID, 5u Lispro with meals, plus sliding scale Smoking Abuse- chronic, active- Cessation advised. Nicotine patch. CXR-No acute pulmonary process. Exam Vital Signs (Last) Date Time Temp Pulse Resp B/P Pulse Ox O2 Delivery O2 Flow Rate FiO2 02/14/17 12:39 37.1 49 16 172/82 99 Room Air 02/10/17 20:08 6 Exam General: No acute distress, appropriately interactive HEENT: Normocephalic, atraumatic. PERRLA, EOMI, Anicteric sclerae, moist conjunctivae. Neck: No JVD, No bruits. No lymphadenopathy or thyromegaly. Cardiovascular: Regular rate and rhythm with no murmurs, rubs, or gallops appreciated Pulmonary: b/l air sound with no crackles, wheezes, or rhonchi. no use of accessory muscles. Abdomen: +Bowel sound, Soft, nontender, nondistended. Extremities: Left leg diminished no pulse, +3 second capillary refill, tender, mildly edematous. No bilateral lower leg edema. Skin: Normal temperature, turgor, and texture; no rash. Neurological: CN II-VII grossly intact, moving equally on all 4 extremities Psychiatric: Normal mood and affect. AOx3 Test 02/10/17 15:41 02/11/17 09:10 02/11/17 20:07 02/12/17 08:35 Erythrocyte Sedimentation Rate 17mm/hr (0-30) Hemoglobin A1c 10.3% (4.8-5.6) Lactic Acid Level 1.0mmol/L (0.4-2.0) Total Bilirubin 0.4mg/dL (0.0-1.2) Aspartate Amino Transf (AST/SGOT) 10U/L (0-50) Alanine Aminotransferase (ALT/SGPT) 9U/L (0-44) Alkaline Phosphatase 111U/L (25-150) C-Reactive Protein 6.3mg/dL (0.0-0.5) Total Protein 7.2g/dL (6.4-8.4) Albumin 3.6g/dL (3.4-5.0) Lipase 14U/L (13-60) Procalcitonin 0.04ng/mL (0.00-0.08) Urine Color Yellow (YELLOW) Urine Appearance Clear (CLEAR,HAZY) Urine pH 5.0 (5.0-8.0) Urine Specific [place] 1.015 (1.003-1.035) Urine Protein 30mg/dL (NEG,TRACE) Urine Glucose (UA) Negativemg/dL (NEGATIVE) Urine Ketones Negativemg/dL (NEGATIVE) Urine Occult Blood Negative (NEGATIVE) Urine Nitrite Negative (NEGATIVE) Urine Bilirubin Negative (NEGATIVE) Urine Urobilinogen Normalmg/dL (NORMAL) Urine Leukocyte Esterase Negative (NEGATIVE) Urine RBC 0-2/hpf (0-2) Urine WBC 0-5/hpf (0-5) Urine Epithelial Cells Few/hpf (NONE-MOD) Urine Crystals None seen (NONE SEEN) Urine Bacteria None/hpf (NONE-FEW) Urine Hyaline Casts None/lpf (NONE) Urine Granular Casts None seen (NONE SEEN) Urine Waxy Casts None seen (NONE SEEN) Urine Red Blood Cell Casts None seen (NONE SEEN) Urine White Blood Cell Casts None seen (NONE SEEN) Urine Mucus None seen (None Seen) Urine Trichomonas None seen (NONE SEEN) Urine Yeast None (NONE SEEN) Urinalysis Comment None Urine Culture Reflexed Not indicated Hold Red Top Tube Received (Received) Neutrophils (%) (Auto) 65.6% (40-74) Lymphocytes (%) (Auto) 23.6% (14-46) Monocytes (%) (Auto) 8.3% (4-12) Eosinophils (%) (Auto) 1.7% (0-5) Basophils (%) (Auto) 0.5% (0-3) Test 02/12/17 20:40 02/13/17 16:33 02/14/17 03:30 Vancomycin Level Trough 9.2mcg/mL Hold Chavez Top Tube Received (Received) White Blood Count 11.4th/mm3 (3.8-10.1) Red Blood Count 4.65mil/mm3 (4.40-5.80) Hemoglobin 12.4g/dL (13.8-17.2) Hematocrit 37.1% (41.0-50.0) Mean Corpuscular Volume 79.8fL (81-100) Mean Corpuscular Hemoglobin 26.7pg (27.0-35.0) Mean Corpuscular Hemoglobin Concent 33.4% (32.0-37.0) Red Cell Distribution Width 13.6% (12.3-15.4) Platelet Count 317bil/L (150-400) Sodium Level 140mEq/L (134-144) Potassium Level 3.8mEq/L (3.5-5.2) Chloride Level 101mEq/L (97-108) Carbon Dioxide Level 25mmol/L (18-29) Blood Urea Nitrogen 13mg/dL (6-24) Creatinine 0.93mg/dL (0.76-1.27) Estimat Glomerular Filtration Rate 90mL/min (>59) Glucose Level 183mg/dL (60-99) Calcium Level 8.2mg/dL (8.5-10.1) Microbiology Results MITA GS (GRAM STAIN) Final 02/11/17- 1231 GRAM STAIN RESULT NO POLYS NO ORGANISMS SEEN MITA CULT AEROBIC Preliminary 02/13/17-0832 Organism 1 STAPHYLOCOCCUS AUREUS COLONY COUNT/QUANTITY HEAVY GROWTH Organism 2 STREP AGALACTIAE - (GROUP B) COLONY COUNT/QUANTITY HEAVY GROWTH SENSITIVITY COMMENTS Susceptibilty testing to follow. STAPHYLOCOCCUS AUREUS Oxacillin Susceptible Penicillin Resistant Staph spp. are Susceptible to Penicillin stable penicillins, Blactam/Blactamase inhibitor combinations, antistaphyloccal cephems, and carbapenems. 1. STAPHYLOCOCCUS AUREUS M.I.C Interp --------- ------ * CEFAZOLIN S * CLINDAMYCIN >=8 R * ERYTHROMYCIN >=8 R * LINEZOLID 2 S * MOXIFLOXACIN <=0.25 S * OXACILLIN MITA <=0.25 S * RIFAMPIN <=0.5 S * TRIMETHOPRIM/SULFAMETHOXAZOLE <=10 S * VANCOMYCIN <=0.5 S ANAEROBIC CULTURE Preliminary 02/13/17 No ANAEROBES recovered at 48 hours hold for futher observation Discharge Medications No Active Prescriptions or Reported Meds Attending Statement I interviewed and examined the patient on rounds today. I agree with the assessment and plan as stated above. Maksim Medina DO Feb 14, 2017 15:03 Zachary Palmer MD Feb 16, 2017 07:05 * TRIMETHOPRIM/SULFAMETHOXAZOLE <=10 S * VANCOMYCIN <=0.5 S ANAEROBIC CULTURE Preliminary 02/13/17 No ANAEROBES recovered at 48 hours hold for futher observation Discharge Medications No Active Prescriptions or Reported Meds Maksim Medina DO Feb 14, 2017 15:03
[2017-02-14] MEDS: HYDROcodone-APAP 5-325 mg Tablet PO PRN (15:19)
--- NOTE | 2017-02-16 15:35 | PATH ---
SURGICAL PATHOLOGY Attending Physician:Hoang Long DPM CASE STATUS: Signed Out PATIENT NAME: MARIFER FULTON PID: [id number] : 1960 DATE COLLECTED:02/10/2017 00:00 SPECIMEN: Toe(s), Amputation, Non-Traumatic CLINICAL HISTORY: GANGRENOUS LEFT 5TH TOE, DM, TOE TRAUMA - GANGRENE 1). LEFT 5TH TOE FOR GROSS FINAL DIAGNOSIS: 1.LEFT FIFTH TOE, DISARTICULATION: - ARTICULAR SURFACE WITH VIABLE REMODELLING BONE WITH MILD ACTIVE INFLAMMATION AND OVERLYING ARTICULAR CARTILAGE WITH DEGENERATIVE CHANGE. - SKIN AND SOFT TISSUE RESECTION MARGIN WITH ACTIVE AND CHRONIC INFLAMMATION AND FOCAL AREAS OF NECROSIS. - POLITICAL GEOGRAPHER SECTION OF BONE WITH NECROSIS AND NEUTROPHILIC INFLAMMATION. - NO EVIDENCE OF MALIGNANCY. [id number] GROSS DESCRIPTION: The specimen is received in formalin, labeled with the patient's name, sublabeled as left 5th toe, and consists of a disarticulated toe (4.6 cm AP, 2.3 cm SI, 2.5 cm ML). The toenail is present. The skin and soft tissue involving the superoposterior aspect is predominantly black brown firm and desiccated. The remaining skin is berman and flaky with dark brown rubbery subcutaneous tissue. The bone underlying the desiccated tissue is easily sliced with a scalpel and has a dark maroon cut surface. The proximal bone is hard and cannot be sliced with a scalpel. No nodules, masses, lesions or defined ulcers are identified. Ink code: black-superior; orange-inferior. 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 Note: The bone sections have been decalcified. 02/15/17 JM MICRO DESCRIPTION: See diagnosis. ICD-9 CODES: CPT CODES: 1: 42529, 24122 Electronically Signed Out Moris Miranda MD [facility] Pathology [facility] [address], [place] [address] Technical component performed at [facility], [facility] [address], [place], [address]
== END 2017-02-14 16:00 | disposition short-term general hospital (02) | DRG 256 ==
LOC: SED 13:15 → OSC 15:22 → PCC 02-13 18:58
PROVIDERS: ADMIT Internal Medicine; ATTEND Internal Medicine
PROC: 0JDR0ZZ Extraction of Left Foot Subcutaneous Tissue and Fascia, Open Approach (ICD-10-PCS; 2017-02-10)
PROC: 0JBR0ZZ Excision of Left Foot Subcutaneous Tissue and Fascia, Open Approach (ICD-10-PCS; 2017-02-10)
PROC: 0Y6Y0Z0 Detachment at Left 5th Toe, Complete, Open Approach (ICD-10-PCS; principal; 2017-02-10 18:15)
PROC: 04JY3ZZ Inspection of Lower Artery, Percutaneous Approach (ICD-10-PCS; 2017-02-13)
PROC: B41GYZZ Fluoroscopy of Left Lower Extremity Arteries using Other Contrast (ICD-10-PCS; 2017-02-13)
DX: E11.52 Type 2 diabetes mellitus with diabetic peripheral angiopathy with gangrene (principal); L02.612 Cutaneous abscess of left foot; L03.116 Cellulitis of left lower limb; I70.92 Chronic total occlusion of artery of the extremities; I70.213 Atherosclerosis of native arteries of extremities with intermittent claudication, bilateral legs; E11.628 Type 2 diabetes mellitus with other skin complications; B95.61 Methicillin susceptible Staphylococcus aureus infection as the cause of diseases classified elsewhere; B95.1 Streptococcus, group B, as the cause of diseases classified elsewhere; E11.65 Type 2 diabetes mellitus with hyperglycemia; Z91.14 Patient's other noncompliance with medication regimen; E11.42 Type 2 diabetes mellitus with diabetic polyneuropathy; F17.210 Nicotine dependence, cigarettes, uncomplicated